=== PATIENT | female | born 1985 | race Caucasian/White ===

== ENCOUNTER 2018-06-20 10:04 | Emergency (ER) | payer SELFPAY ==
[2018-06-20 10:24] VITALS: BP 162/102; PULSE 99; RESP 20; TEMP 36.6; O2SAT 99
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
[2018-06-20 10:42] LABS: Add Manual Diff / Slide Review NO; Basophils Percent Auto 0.7 % (0-2); Eosinophils Percent Auto 2.3 % (2-4); Hemoglobin 11.5 g/dL (12.0-16.0); Lymphocytes Percent Auto 16.3 % (25-40); Mean Corpuscular Volume 78.7 fL (80-100); Monocytes Percent Auto 9.6 % (3-14); Neutrophils Absolute Auto 6300 /uL (3000-5900); Neutrophils Percent Auto 71.1 % (50-75); Platelet Count 311 X10^3/uL (150-400); Red Blood Cell Count 4.45 X10^6/uL (4.0-5.2); Red Cell Distribution Width 16.8 % (11.6-14.8); White Blood Cell Count 8.9 X10^3/uL (4.5-11.0)
[2018-06-20 10:53] LABS: Acetaminophen < 10 ug/mL (10-30); Alanine Aminotransferase 19 IU/L (9-52); Albumin 4.3 g/dL (3.5-5.0); Albumin Globulin Ratio 1.5 (1.0-2.8); Alkaline Phosphatase 60 U/L (38-126); Aspartate Aminotransferase 20 IU/L (14-36); BUN Creatinine Ratio 14.3 (6-22); Bilirubin Total 0.7 mg/dL (0.2-1.3); Blood Urea Nitrogen 10 mg/dL (7-17); Calcium 9.6 mg/dL (8.4-10.2); Carbon Dioxide 28 mmol/L (22-32); Chloride 105 mmol/L (98-107); Estimated Glomerular Filt Rate > 60.0 mL/min (>60); Ethanol (ETOH) < 10 mg/dL; Globulin 2.8 g/dL (1.7-4.1); Glucose 99 mg/dL (70-100); HEMOLYSIS < 15 (0-50); Lipase 32 U/L (23-300); Potassium 3.7 mmol/L (3.4-5.1); Sodium 140 mmol/L (137-145); Total Protein 7.1 g/dL (6.3-8.2)
[2018-06-20 10:54] LABS: Salicylate < 1.0 mg/dL (<20)
[2018-06-20 11:14] LABS: Pregnancy Test Serum,Qual Negative (Negative)
[2018-06-20 13:30] VITALS: BP 121/79; PULSE 73; RESP 17; O2SAT 100
--- NOTE | 2018-06-20 14:08 | PC.NURSE ---
Water given to pt
--- NOTE | 2018-06-20 14:10 | PC.NURSE ---
Pt stood up, starting banging on door asking to be let out, for water and to go to detention. RN gave patient water.
[2018-06-20 14:34] LABS: Urine Amphetamines Positive (Negative); Urine Barbiturates Negative (Negative); Urine Benzodiazepines Negative (Negative); Urine Cocaine Negative (Negative); Urine MDMA Negative (Negative); Urine Methadone Negative (Negative); Urine Methamphetamines Positive (Negative); Urine Morphine/Opi cutoff 2000 Negative (Negative); Urine Oxycodone Negative (Negative); Urine Phencyclidine Negative (Negative); Urine Tetrahydrocannabinol Positive (Negative); Urine Tricyclic Antidepressant Negative (Negative)
[2018-06-20 16:10] VITALS: BP 124/82; PULSE 82; RESP 16; TEMP 36.6; O2SAT 100
--- NOTE | 2018-06-20 16:12 | PC.NURSE ---
Patient complaining of more stomach pain, Dr. Mckeon informed and aware.
--- NOTE | 2018-06-20 16:21 | PC.NURSE ---
[facility] called at 1510 by LESLEE Oakley.
--- NOTE | 2018-06-20 16:29 | PC.NURSE ---
1600-Gave pt a juice box and some cheese and crackers. PT states that she wants to leave due to fear of being fired. States that if she gets fired from her work that she is sueing us because we are holding her against her will. PT asked for a phone to be able to call her work. Discussed with digital analytics manager:Armida. PT will not be given a phone at this time due to pt being unreliable to not hurt staff or herself. PT is resting on the ED stretcher. Will continue to monitor pt
--- NOTE | 2018-06-20 17:15 | PC.NURSE ---
1650-PT still insists on calling her work. RN (Oly) said we can get her phone for her (which is currently locked up) so she can call her work.RN(Cheyenne) went to open the Patient Belongings door and the lock malfunctioned. maintenance parts technician is in search of a new battery. PT wants to leave to be able to get her 13 yr old. pt is in the room crying
--- NOTE | 2018-06-20 17:22 | PC.NURSE ---
1720-groundwater monitoring technician was able to get the belongings door opened. Handed pt her cellphone. PT snatched it out of my hand. Pt continues to cry. Pt is currently on her phone in the corner of the room. PT is on the phone with someone. Can't tell who at this time.
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
--- NOTE | 2018-06-20 17:38 | PC.NURSE ---
0205-RN (yenni), CNAs:Rene and Adin went into the room to take away her phone. Pt said i need to call my work! Pt was not able to call her work as she decided to use the phone to call her work instead. I assisted to help take pt's phone away.Pt was yelling at Yenni saying don't fuckin touch me you bitch!! Stay away from me you whore!! Rene was able to get pt's phone from her. Pt hid behind the ED stretcher and turned on the oxygen tank. Yenni wanted the stretcher taken away and a mattress given to pt instead. Pt is currently on mattress with a blanket over her and her head on a pillow. Pt was crying out you are treating me worse then a prisoner. I haven't even had a real meal! Pt is crying at the moment. Door to pt's room is open. I will continue to stand by and watch pt.
--- NOTE | 2018-06-20 17:48 | PC.NURSE ---
1720 - pt was yelling while sitting in the corner of the room on her cell phone. She had tears streaming down her face, was hitting the wall and cursing. I entered room and told patient she was to be calling her work as she asked. She screamed and yelled, refused to give up the phone. I told her she could have 5 mins and then I needed the phone back, she agreed. After 5 mins I entered the room and asked for the phone, she declined, hid the phone behind her back. I repeated the request and she continued the refusal. I explained that she needed to give us the phone as who ever she was speaking to was not helping her situation, she continued to refused. I physically held her arms while a AUTO PARKER removed the phone from her hand. She yelled and called me a cunt continued to refuse to give up the phone. After the phone was removed from the room staff exited the room. Shortly after a hissing sound came form the room, we entered the room to find she had turned on the oxygen bottle located under the bed. We removed the bed and gave the patient a large mattress on the ground for her safety. A sitter is outside her room with continuos monitoring as she appears to be escalating.
--- NOTE | 2018-06-20 18:53 | PC.NURSE ---
1850-Pt is resting on a mattress in the room. Pt will look up from underneath her blanket every now and then. Pt is quiet at the moment, not crying or yelling out. [facility]
--- NOTE | 2018-06-20 19:40 | PC.NURSE ---
Maco5-Oren in room with pt. Pt is very irritated at the moment. Will continue to monitor
--- NOTE | 2018-06-20 19:44 | PC.NURSE ---
1935-Pt mentioned to Oren that she was hungry. Gave pt a half a sandwich, water, juice,saltine crackers and alfonso crackers. Pt is still hostile with everyone that talks to her. States she wants to get home to her daughter and wants to know when she'll be able to go. Pt isn't teary at the moment. Pt has only eaten her sandwich and drank some of her water and her juice. States she has been asking for food all day but hasn't said anything to me. Will cont to monitor.
--- NOTE | 2018-06-20 21:18 | PC.NURSE ---
Bess walked into the room and mentioned to the pt that she was going to be transferred to a facility down in [place]. Pt responded with why the fuck so far away.? Oren mentioned it was the only place that would take her and then handed her some papers.
[2018-06-20 21:29] VITALS: BP 139/94; PULSE 90; RESP 20; TEMP 36.8; O2SAT 100
--- NOTE | 2018-06-20 21:30 | PC.NURSE ---
2130-[facility] is here to bring PT down to [place]. Currently waiting for the [facility] to finish the packet for transport. Took one last set of VS before the pt left. Reported VS to RN. Gave to [facility] to document in the computer as I do not have access to document on the vital signs.
--- NOTE | 2018-06-20 21:42 | PC.NURSE ---
2139-casting and locker room servicer were handed the pt's transfer papers and strapped PT onto their stretcher.
--- NOTE | 2018-06-20 21:44 | PC.NURSE ---
2145-PT out the door and on her way to [facility]
== END 2018-06-20 21:45 ==
PROVIDERS: Emergency Provider Emergency Medicine; Family Provider Family Medicine; PCP Family Medicine
DX: R41.82 Altered mental status, unspecified (principal)
CPT/HCPCS: 36415; 80053; 80305; 80320; 80329; 83690; 84703; 85025; 99285; G0480

== ENCOUNTER 2019-05-21 17:25 | Emergency (ER) | payer SELFPAY ==
[2019-05-21 17:30] VITALS: BP 147/105; PULSE 109; RESP 18; TEMP 37.3; O2SAT 100; BMI 18.8
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
[2019-05-21] MEDS: KETOROLAC 60 MG/2 ML VIAL IM (19:25)
[2019-05-21 19:30] VITALS: BP 125/74; PULSE 77; O2SAT 100
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
[2019-05-21 20:57] VITALS: BP 133/85; PULSE 77; RESP 18
== END 2019-05-21 20:58 | disposition home or self-care (01) ==
PROVIDERS: Emergency Provider Nurse Practitioner Family
DX: S50.02XA Contusion of left elbow, initial encounter (principal); S20.212A Contusion of left front wall of thorax, initial encounter; Y08.02XA Assault by strike by baseball bat, initial encounter
CPT/HCPCS: 71101; 73080; 96372; 99282; 99283; J1885

== ENCOUNTER 2021-01-30 13:43 | Inpatient (IN) | payer SELFPAY ==
[2021-01-30] VITALS (24 sets, daily range): BP systolic 133–191; BP diastolic 84–111; PULSE 51–79; RESP 16–18; TEMP 35.9–36.6; O2SAT 97–100; BMI 21.9; BMI 23.3
[2021-01-30 14:08] LABS: Prothrombin Time 11.2 SECONDS (10.1-12.7)
[2021-01-30 14:09] LABS: Add Manual Diff / Slide Review NO; Basophils Absolute Auto 200 /uL (0-100); Basophils Percent Auto 1.6 % (0-2); Eosinophils Absolute Auto 100 /uL (0-450); Eosinophils Percent Auto 0.9 % (2-4); Hematocrit 34.3 % (36-46); Hemoglobin 10.8 g/dL (12.0-16.0); Lymphocytes Absolute Auto 1800 /uL (1100-4500); Lymphocytes Percent Auto 16.9 % (25-40); Mean Corpuscular HGB Conc 31.4 % (30-36); Mean Corpuscular Hemoglobin 22.6 PG (26-34); Monocytes Absolute Auto 600 /uL (0-900); Monocytes Percent Auto 5.4 % (3-14); Neutrophils Absolute Auto 7800 /uL (1500-7000); Neutrophils Percent Auto 75.2 % (50-75); Platelet Count 405 X10^3/uL (150-400); Red Blood Cell Count 4.77 X10^6/uL (4.0-5.2); Red Cell Distribution Width 20.9 % (11.6-14.8); White Blood Cell Count 10.4 X10^3/uL (4.5-11.0)
[2021-01-30 14:11] LABS: PTT Partial Thromboplastin Tim 28 SECONDS (26.4-36.2)
[2021-01-30 14:18] LABS: Alanine Aminotransferase 12 IU/L (<35); Albumin 4.4 g/dL (3.5-5.0); Albumin Globulin Ratio 1.3 (1.0-2.8); Alkaline Phosphatase 73 U/L (38-126); Aspartate Aminotransferase 24 IU/L (14-36); BUN Creatinine Ratio 31.9 (6-22); Bilirubin Total 0.2 mg/dL (0.2-1.3); Blood Urea Nitrogen 15 mg/dL (7-17); Calcium 9.5 mg/dL (8.4-10.2); Carbon Dioxide 28 mmol/L (22-32); Chloride 103 mmol/L (98-107); Estimated Glomerular Filt Rate > 60.0 mL/min (>60); Globulin 3.3 g/dL (1.7-4.1); Glucose 122 mg/dL (70-100); HEMOLYSIS 25 (0-50); Lipase 72 U/L (23-300); Potassium 3.6 mmol/L (3.4-5.1); Sodium 136 mmol/L (137-145); Total Protein 7.7 g/dL (6.3-8.2)
[2021-01-30] MEDS: MORPHINE 2 MG/ML INJ IV ×3 (14:31→22:22)
[2021-01-30] MEDS: ONDANSETRON 4 MG/2 ML INJ IV ×2 (14:31→17:58)
[2021-01-30] MEDS: SODIUM CHLORIDE 0.9% 1,000 ML 1000 ML IV ×2 (14:31→15:14)
[2021-01-30 15:00] LABS: Lactate (Lactic Acid) 1.7 mmol/L (0.7-2.1)
[2021-01-30 15:05] LABS: Poikilocytosis 1+
[2021-01-30 15:06] LABS: Anisocytosis 3+
[2021-01-30 15:10] LABS: Pregnancy Test Serum,Qual Negative (Negative)
--- NOTE | 2021-01-30 15:23 | DI.CT.S_ITS ---
PROCEDURE: CT ABDOMEN PELVIS W CON INDICATIONS: abd pain, vomiting, no bms x days TECHNIQUE: After the administration of intravenous contrast, 5 mm thick sections acquired from the diaphragm to the symphysis. 5 mm coronal and sagittal reformats were acquired. For radiation dose reduction, the following was used: automated exposure control, adjustment of mA and/or kV according to patient size. COMPARISON: None. FINDINGS: Image quality: Excellent. ABDOMEN: Lung bases: Lung bases are clear. Heart size is normal. Solid organs: Liver is normal in size and enhancement. Gallbladder is unremarkable. Biliary system is non dilated. Pancreas enhances normally. Spleen is normal in size and enhancement. No adrenal nodules. Kidneys demonstrate normal size and enhancement, without hydronephrosis. Peritoneum and bowel: Marked diffuse edema of the gastric antrum pylorus. Question gastric antral ulcer. Bowel loops demonstrate normal wall thickness and caliber. No free fluid or air. Nodes and vessels: No retroperitoneal or mesenteric adenopathy by size criteria. Aorta and inferior vena cava are normal in size. Miscellaneous: No ventral hernias. PELVIS: Genitourinary: Bladder wall thickness is normal. Miscellaneous: No inguinal hernias or adenopathy. Bones: No suspicious bony lesions. No vertebral body compression fractures. Bilateral L5 pars defects with mild grade 1 anterolisthesis of L5 on S1. There is severe right L5-S1 foraminal narrowing and moderate left L5-S1 foraminal narrowing. The right L5 nerve root is impinged in the right foramen. IMPRESSION: 1. Marked edema of the gastric antrum and pylorus. Findings are consistent with impressive gastritis. Question anterior gastric antral ulcer. 2. Incidental note made of the presence of bilateral L5 pars defects, mild anterolisthesis of L5 on S1, and foraminal impingement on the right L5 nerve root. Dictated by: Aly Wynne M.D. on 01/30/2021 at 15:11 Approved by: Aly Wynne M.D. on 01/30/2021 at 15:15
[2021-01-30 16:30] LABS: Amorphous Sediment Urine 3+; Bacteria Urine Moderate (10-30); RBC Urine 1-5/HPF (0-5/HPF); Squamous Epithelial Cell Urine 1-5 /HPF (0-5/HPF); WBC Urine 10-30/HPF (0-5/HPF)
[2021-01-30 16:31] LABS: Culture Indicated Urine Specimen Cultured
[2021-01-30 16:37] LABS: UR Morphine/Opiate cutoff 300 Positive (Negative); Ur Creatinine Normal (Normal); Ur Specific Gravity Normal (Normal); Urine Amphetamines Positive (Negative); Urine Barbiturates Negative (Negative); Urine Benzodiazepines Negative (Negative); Urine Cocaine Negative (Negative); Urine MDMA Negative (Negative); Urine Methadone Negative (Negative); Urine Methamphetamines Positive (Negative); Urine Oxycodone Negative (Negative); Urine Phencyclidine Negative (Negative); Urine Tetrahydrocannabinol Positive (Negative); Urine Tricyclic Antidepressant Negative (Negative); Urine pH Normal (Normal)
--- NOTE | 2021-01-30 17:54 | ED.ABDPAIN ---
HPI - Abdominal Pain <KYLE Burciaga-BC - Last Filed: 01/30/21 19:33> General Chief Complaint: Abdominal Pain Stated Complaint: ABDOMINAL PAIN, STARTED ABOUT 2 DAYS AGO Time Seen by Provider: 01/30/21 13:58 Source: patient and family Mode of arrival: Ambulatory Limitations: no limitations History of Present Illness HPI narrative: The patient is a 35-year-old female current everyday smoker with history of marijuana methamphetamine use who presents with a chief complaint of abdominal pain ongoing for the past 2 days. She complains of nausea that progressed to vomiting today. She took Pepto to feel better, which she states helped for a slight moment but not long. Last bowel movement 2 days ago. She states that she feels very bloated. Denies any dysuria urgency or frequency. Denies any abdominal surgical history other than tubal ligation. Denies any vaginal discharge. She states that the pain is Around her umbilicus and radiates up. Denies any back or flank pain. Related Data Previous Rx's Medication Instructions Recorded amoxicillin 1,000 mg PO BID #56 tab 01/31/21 clarithromycin 500 mg PO BID #28 tab 01/31/21 metronidazole 500 mg PO BID #28 tab 01/31/21 pantoprazole 40 mg PO BID #60 tab 01/31/21 Allergies Allergy/AdvReac Type Severity Reaction Status Date / Time hydrocodone [HYDROCODONE] Allergy Mild ITCHING Verified 01/30/21 19:32 Review of Systems <KYLE Burciaga-BC - Last Filed: 01/30/21 19:33> Review of Systems Narrative: GENERAL: Denies chills, fatigue, malaise, fever, sweats. HEENT: Denies sinus pain, ear pain, sore throat, difficulty swallowing, dizziness. RESPIRATORY: Denies dyspnea, cough, wheezing, hemoptysis, sputum. CARDIOVASCULAR: Denies chest pain, palpitations, orthopnea, edema, GASTROINTESTINAL: See HPI : Denies dysuria, frequency, incontinence, hematuria, urinary retention. MUSCULOSKELETAL: denies weakness, joint pain, or bony pain SKIN: Denies rash, skin lesions, or other NEUROLOGIC: Denies weakness, headache, numbness, change in speech, confusion, seizures, incoordination. PSYCHIATRIC: No concerning psychosocial issues. 12 point review of systems is negative except for those stated above Patient History <HARMAN Burciaga - Last Filed: 01/30/21 19:33> Medical History (Updated 01/30/21 @ 21:19 by SHADY Vizcaino) Migraine headache Polysubstance abuse Psoriatic arthritis Surgical History (Updated 01/30/21 @ 21:19 by SHADY Vizcaino) History of tubal ligation Family History (Updated 01/30/21 @ 21:21 by SHADY Vizcaino) Father Hypertension Mother Alcoholism Grandmother Diabetes mellitus Sister Lupus Family/Other Multiple sclerosis Social History household members: significant other Smoking Status: Current every day smoker alcohol intake: former Smoking Status: Current every day smoker Substance Use Type: marijuana and methamphetamine Exam <HARMAN Burciaga - Last Filed: 01/30/21 19:33> Narrative Exam Narrative: GENERAL: This is a well-nourished, well-developed patient, appears uncomfortable. HEAD: Atraumatic. Normocephalic. No temporal or scalp tenderness. EYES: Pupils equal round and reactive. Extraocular motions intact. No scleral icterus. No injection or drainage. ENT: Nose without bleeding, purulent drainage or septal hematoma. Wearing mask. Airway patent. NECK: Trachea midline. No JVD or lymphadenopathy. Supple, nontender, no meningeal signs. CARDIOVASCULAR: Regular rate and rhythm RESPIRATORY: Clear to auscultation. Breath sounds equal bilaterally. No wheezes, rales, or rhonchi. No cough. No increased respiratory effort. No accessory muscle use. GASTROINTESTINAL: Abdomen soft, tenderness of periumbilical with slight guarding, nondistended. No hepato-splenomegaly, or palpable masses. Active bowel sounds all 4 quadrants EXTREMITIES: No clubbing, cyanosis, or edema. No joint tenderness, effusion, or edema noted. BACK: Nontender without deformity or crepitance. No flank tenderness. NEURO: AOx3. SKIN: No rash or erythema on visible skin. 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 Initial Vital Signs Initial Vital Signs: Vital Signs Temperature 97.6 F 01/30/21 13:49 Pulse Rate 74 01/30/21 13:49 Respiratory Rate 16 01/30/21 13:49 Pulse Oximetry 97 01/30/21 13:49 <Mae Geurrero DO - Last Filed: 01/31/21 18:51> Initial Vital Signs Initial Vital Signs: Vital Signs Temperature 97.6 F 01/30/21 13:49 Pulse Rate 74 01/30/21 13:49 Respiratory Rate 16 01/30/21 13:49 Pulse Oximetry 97 01/30/21 13:49 Scores <VINNIE BurciagaBC - Last Filed: 01/30/21 19:33> GCS Tania coma scale eye opening: Spontaneous Tania coma scale verbal response: Orientated Tania coma scale motor response: Obey commands [place] coma scale total score: 15 Course <HARMAN Burciaga - Last Filed: 01/30/21 19:33> Orders Ordered: Discontinued Medications Amoxicillin (Amoxicillin 250 Mg/5 Ml Bottle) 1,000 mg PO Q12H [facility] Last Admin: 01/31/21 01:45 Dose: Not Given Documented by: PAULETTE Amoxicillin (Amoxicillin 250 Mg/5 Ml Bottle) 1,000 mg TUBE BID [facility] Amoxicillin (Amoxicillin 250 Mg/5 Ml Prepack) 4 bottle MISC BID [facility] Stop: 02/01/21 21:01 Amoxicillin (Amoxicillin 250 Mg/5 Ml Prepack) 1 bottle MISC BID [facility] Stop: 02/01/21 09:01 Last Admin: 01/31/21 00:24 Dose: 1 bottle Documented by: PAULETTE Bisacodyl (Bisacodyl 10 Mg Supp) 10 mg [place] DAILY PRN PRN Reason: Constipation Bismuth Subsalicylate (Bismuth Subsalicylate 525 Mg/30 Ml Susp) 30 ml PO QID [facility] Last Admin: 01/31/21 00:36 Dose: 30 ml Documented by: PAULETTE Clarithromycin (Clarithromycin 500 Mg Tablet) 500 mg PO BID [facility] Last Admin: 01/31/21 01:34 Dose: Not Given Documented by: EFREN Enoxaparin Sodium (Enoxaparin 40 Mg/0.4 Ml Syringe) 40 mg SUBCUT DAILY [facility] Fentanyl (Fentanyl 100 Mcg/2 Ml Inj) 0 mcg IV Q5MIN PRN PRN Reason: Pain, Severe (7-10) Sodium Chloride (Normal Saline 0.9%) 1,000 mls @ 1,000 mls/hr IV BOLUS ONE Stop: 01/30/21 15:29 Last Infusion: 01/30/21 15:12 Dose: 0 mls/hr Documented by: Admin: 01/30/21 14:31 Dose: 1,000 mls/hr Documented by: JAMAL Sodium Chloride (Normal Saline 0.9%) 1,000 mls @ 1,000 mls/hr IV BOLUS ONE Stop: 01/30/21 16:11 Last Infusion: 01/30/21 16:59 Dose: 0 mls/hr Documented by: Admin: 01/30/21 15:14 Dose: 1,000 mls/hr Documented by: JAMAL Sodium Chloride (Normal Saline 0.9%) 1,000 mls @ 250 mls/hr IV CONT HO Last Infusion: 01/30/21 20:18 Dose: 0 mls/hr Documented by: Infusion: 01/30/21 20:07 Dose: 0 mls/hr Documented by: Infusion: 01/30/21 19:35 Dose: 250 mls/hr Documented by: Admin: 01/30/21 17:57 Dose: 250 mls/hr Documented by: JIMMY Lactated Ringer's (Lactated Ringers) 1,000 mls @ 125 mls/hr IV CONT HO Last Admin: 01/31/21 06:45 Dose: 125 mls/hr Documented by: Infusion: 01/31/21 05:31 Dose: 125 mls/hr Documented by: Admin: 01/30/21 20:31 Dose: 125 mls/hr Documented by: BELINDA Levofloxacin (Levaquin) 500 mg in 100 mls @ 100 mls/hr IV Q24H HO Last Infusion: 01/30/21 22:52 Dose: 100 mls/hr Documented by: Admin: 01/30/21 21:59 Dose: 100 mls/hr Documented by: BELINDA Lactated Ringer's (Lactated Ringers) 1,000 mls @ 42 mls/hr IV CONT HO Last Infusion: 01/31/21 10:20 Dose: 0 mls/hr Documented by: Admin: 01/31/21 09:10 Dose: 42 mls/hr Documented by: SHAN Lactated Ringer's (Lactated Ringers) 1,000 mls @ 120 mls/hr IV CONT HO Last Admin: 01/31/21 10:49 Dose: 120 mls/hr Documented by: BELKIS Lidocaine HCl (Lidocaine 2% (Urojet) 5 Ml Gel) 5 ml TOP NOW ONE Stop: 01/30/21 20:51 Last Admin: 01/30/21 22:25 Dose: 5 ml Documented by: BELINDA Morphine Sulfate (Morphine 2 Mg/Ml Inj) 2 mg IV NOW ONE Stop: 01/30/21 14:27 Last Admin: 01/30/21 14:31 Dose: 2 mg Documented by: JAMAL Morphine Sulfate (Morphine 2 Mg/Ml Inj) 2 mg IV NOW ONE Stop: 01/30/21 15:13 Last Admin: 01/30/21 15:14 Dose: 2 mg Documented by: JAMAL Morphine Sulfate (Morphine 2 Mg/Ml Inj) 2 mg IV Q4HR PRN PRN Reason: Pain, Moderate (4-6) Last Admin: 01/30/21 22:22 Dose: 2 mg Documented by: BELINDA Morphine Sulfate (Morphine 4 Mg/Ml Inj) 4 mg IV Q4HR PRN PRN Reason: Pain, Severe (7-10) Last Admin: 01/31/21 08:44 Dose: 4 mg Documented by: BELKIS Naloxone HCl (Naloxone 0.4 Mg/Ml Vial) 0.2 mg IV Q2MIN PRN PRN Reason: Opiate Reversal Ondansetron HCl (Ondansetron 4 Mg/2 Ml Inj) 4 mg IV NOW ONE Stop: 01/30/21 14:27 Last Admin: 01/30/21 14:31 Dose: 4 mg Documented by: JAMAL Ondansetron HCl (Ondansetron 4 Mg/2 Ml Inj) 4 mg IV NOW ONE Stop: 01/30/21 17:46 Last Admin: 01/30/21 17:58 Dose: 4 mg Documented by: JIMMY Ondansetron HCl (Ondansetron 4 Mg/2 Ml Inj) 4 mg IV Q6HR PRN PRN Reason: Nausea And Vomiting Ondansetron HCl (Ondansetron 4 Mg/2 Ml Inj) 4 mg IV NOW PRN PRN Reason: Nausea And Vomiting Pantoprazole Sodium (Pantoprazole 40 Mg Vial) 40 mg IV NOW ONE Stop: 01/30/21 17:06 Last Admin: 01/30/21 17:58 Dose: 40 mg Documented by: JIMMY Pantoprazole Sodium (Pantoprazole 40 Mg Vial) 40 mg IV BID [facility] Last Admin: 01/31/21 08:44 Dose: 40 mg Documented by: Admin: 01/30/21 20:31 Dose: 40 mg Documented by: BELINDA Promethazine HCl (Promethazine 12.5 Mg Supp) 12.5 mg [place] Q6HR PRN PRN Reason: Nausea And Vomiting Sodium Chloride (Sodium Chloride 0.9% Flush) 10 ml IV PRN PRN PRN Reason: Flush Sodium Chloride (Sodium Chloride 0.9% Flush) 10 ml IV BID [facility] Last Admin: 01/31/21 08:49 Dose: Not Given Documented by: BELKIS Vital Signs Vital signs: Vital Signs - 8 hr 01/30/21 13:49 01/30/21 13:58 01/30/21 14:00 Temperature 97.6 F Pulse Rate 74 61 61 Respiratory Rate 16 Blood Pressure 171/111 H Pulse Oximetry 97 100 100 01/30/21 14:30 01/30/21 15:00 01/30/21 15:30 Temperature Pulse Rate 57 L 60 54 L Respiratory Rate Blood Pressure 181/109 H 190/105 H 191/104 H Pulse Oximetry 100 100 100 01/30/21 15:40 01/30/21 15:55 01/30/21 16:00 Temperature Pulse Rate 62 62 52 L Respiratory Rate Blood Pressure 175/94 H Pulse Oximetry 100 98 100 01/30/21 16:01 01/30/21 16:30 01/30/21 16:31 Temperature Pulse Rate 53 L 51 L 53 L Respiratory Rate Blood Pressure 185/111 H 172/96 H Pulse Oximetry 100 100 100 01/30/21 17:00 01/30/21 17:01 01/30/21 17:30 Temperature Pulse Rate 54 L 56 L 57 L Respiratory Rate Blood Pressure 170/99 H 165/98 H Pulse Oximetry 100 100 100 01/30/21 18:00 01/30/21 18:01 01/30/21 18:30 Temperature Pulse Rate 59 L 59 L 70 Respiratory Rate 16 Blood Pressure 164/98 H 167/109 H Pulse Oximetry 100 100 100 01/30/21 19:00 Temperature Pulse Rate 53 L Respiratory Rate 18 Blood Pressure 166/90 H Pulse Oximetry 100 <Mae Guerrero, DO - Last Filed: 01/31/21 18:51> Orders Ordered: Discontinued Medications Amoxicillin (Amoxicillin 250 Mg/5 Ml Bottle) 1,000 mg PO Q12H [facility] Last Admin: 01/31/21 01:45 Dose: Not Given Documented by: PAULETTE Amoxicillin (Amoxicillin 250 Mg/5 Ml Bottle) 1,000 mg TUBE BID [facility] Amoxicillin (Amoxicillin 250 Mg/5 Ml Prepack) 4 bottle MISC BID [facility] Stop: 02/01/21 21:01 Amoxicillin (Amoxicillin 250 Mg/5 Ml Prepack) 1 bottle MISC BID [facility] Stop: 02/01/21 09:01 Last Admin: 01/31/21 00:24 Dose: 1 bottle Documented by: PAULETTE Bisacodyl (Bisacodyl 10 Mg Supp) 10 mg [place] DAILY PRN PRN Reason: Constipation Bismuth Subsalicylate (Bismuth Subsalicylate 525 Mg/30 Ml Susp) 30 ml PO QID [facility] Last Admin: 01/31/21 00:36 Dose: 30 ml Documented by: PAULETTE Clarithromycin (Clarithromycin 500 Mg Tablet) 500 mg PO BID [facility] Last Admin: 01/31/21 01:34 Dose: Not Given Documented by: EFREN Enoxaparin Sodium (Enoxaparin 40 Mg/0.4 Ml Syringe) 40 mg SUBCUT DAILY [facility] Fentanyl (Fentanyl 100 Mcg/2 Ml Inj) 0 mcg IV Q5MIN PRN PRN Reason: Pain, Severe (7-10) Sodium Chloride (Normal Saline 0.9%) 1,000 mls @ 1,000 mls/hr IV BOLUS ONE Stop: 01/30/21 15:29 Last Infusion: 01/30/21 15:12 Dose: 0 mls/hr Documented by: Admin: 01/30/21 14:31 Dose: 1,000 mls/hr Documented by: JAMAL Sodium Chloride (Normal Saline 0.9%) 1,000 mls @ 1,000 mls/hr IV BOLUS ONE Stop: 01/30/21 16:11 Last Infusion: 01/30/21 16:59 Dose: 0 mls/hr Documented by: Admin: 01/30/21 15:14 Dose: 1,000 mls/hr Documented by: JAMAL Sodium Chloride (Normal Saline 0.9%) 1,000 mls @ 250 mls/hr IV CONT HO Last Infusion: 01/30/21 20:18 Dose: 0 mls/hr Documented by: Infusion: 01/30/21 20:07 Dose: 0 mls/hr Documented by: Infusion: 01/30/21 19:35 Dose: 250 mls/hr Documented by: Admin: 01/30/21 17:57 Dose: 250 mls/hr Documented by: JIMMY Lactated Ringer's (Lactated Ringers) 1,000 mls @ 125 mls/hr IV CONT HO Last Admin: 01/31/21 06:45 Dose: 125 mls/hr Documented by: Infusion: 01/31/21 05:31 Dose: 125 mls/hr Documented by: Admin: 01/30/21 20:31 Dose: 125 mls/hr Documented by: BELINDA Levofloxacin (Levaquin) 500 mg in 100 mls @ 100 mls/hr IV Q24H HO Last Infusion: 01/30/21 22:52 Dose: 100 mls/hr Documented by: Admin: 01/30/21 21:59 Dose: 100 mls/hr Documented by: BELINDA Lactated Ringer's (Lactated Ringers) 1,000 mls @ 42 mls/hr IV CONT HO Last Infusion: 01/31/21 10:20 Dose: 0 mls/hr Documented by: Admin: 01/31/21 09:10 Dose: 42 mls/hr Documented by: SHAN Lactated Ringer's (Lactated Ringers) 1,000 mls @ 120 mls/hr IV CONT HO Last Admin: 01/31/21 10:49 Dose: 120 mls/hr Documented by: BELKIS Lidocaine HCl (Lidocaine 2% (Urojet) 5 Ml Gel) 5 ml TOP NOW ONE Stop: 01/30/21 20:51 Last Admin: 01/30/21 22:25 Dose: 5 ml Documented by: BELINDA Morphine Sulfate (Morphine 2 Mg/Ml Inj) 2 mg IV NOW ONE Stop: 01/30/21 14:27 Last Admin: 01/30/21 14:31 Dose: 2 mg Documented by: JAMAL Morphine Sulfate (Morphine 2 Mg/Ml Inj) 2 mg IV NOW ONE Stop: 01/30/21 15:13 Last Admin: 01/30/21 15:14 Dose: 2 mg Documented by: JAMAL Morphine Sulfate (Morphine 2 Mg/Ml Inj) 2 mg IV Q4HR PRN PRN Reason: Pain, Moderate (4-6) Last Admin: 01/30/21 22:22 Dose: 2 mg Documented by: BELINDA Morphine Sulfate (Morphine 4 Mg/Ml Inj) 4 mg IV Q4HR PRN PRN Reason: Pain, Severe (7-10) Last Admin: 01/31/21 08:44 Dose: 4 mg Documented by: BELKIS Naloxone HCl (Naloxone 0.4 Mg/Ml Vial) 0.2 mg IV Q2MIN PRN PRN Reason: Opiate Reversal Ondansetron HCl (Ondansetron 4 Mg/2 Ml Inj) 4 mg IV NOW ONE Stop: 01/30/21 14:27 Last Admin: 01/30/21 14:31 Dose: 4 mg Documented by: JAMAL Ondansetron HCl (Ondansetron 4 Mg/2 Ml Inj) 4 mg IV NOW ONE Stop: 01/30/21 17:46 Last Admin: 01/30/21 17:58 Dose: 4 mg Documented by: JIMMY Ondansetron HCl (Ondansetron 4 Mg/2 Ml Inj) 4 mg IV Q6HR PRN PRN Reason: Nausea And Vomiting Ondansetron HCl (Ondansetron 4 Mg/2 Ml Inj) 4 mg IV NOW PRN PRN Reason: Nausea And Vomiting Pantoprazole Sodium (Pantoprazole 40 Mg Vial) 40 mg IV NOW ONE Stop: 01/30/21 17:06 Last Admin: 01/30/21 17:58 Dose: 40 mg Documented by: JIMMY Pantoprazole Sodium (Pantoprazole 40 Mg Vial) 40 mg IV BID HO Last Admin: 01/31/21 08:44 Dose: 40 mg Documented by: Admin: 01/30/21 20:31 Dose: 40 mg Documented by: BELINDA Promethazine HCl (Promethazine 12.5 Mg Supp) 12.5 mg [place] Q6HR PRN PRN Reason: Nausea And Vomiting Sodium Chloride (Sodium Chloride 0.9% Flush) 10 ml IV PRN PRN PRN Reason: Flush Sodium Chloride (Sodium Chloride 0.9% Flush) 10 ml IV BID HO Last Admin: 01/31/21 08:49 Dose: Not Given Documented by: BELKIS Vital Signs Vital signs: Vital Signs - 8 hr 01/30/21 13:49 01/30/21 13:58 01/30/21 14:00 Temperature 97.6 F Pulse Rate 74 61 61 Respiratory Rate 16 Blood Pressure 171/111 H Pulse Oximetry 97 100 100 01/30/21 14:30 01/30/21 15:00 01/30/21 15:30 Temperature Pulse Rate 57 L 60 54 L Respiratory Rate Blood Pressure 181/109 H 190/105 H 191/104 H Pulse Oximetry 100 100 100 01/30/21 15:40 01/30/21 15:55 01/30/21 16:00 Temperature Pulse Rate 62 62 52 L Respiratory Rate Blood Pressure 175/94 H Pulse Oximetry 100 98 100 01/30/21 16:01 01/30/21 16:30 01/30/21 16:31 Temperature Pulse Rate 53 L 51 L 53 L Respiratory Rate Blood Pressure 185/111 H 172/96 H Pulse Oximetry 100 100 100 01/30/21 17:00 01/30/21 17:01 01/30/21 17:30 Temperature Pulse Rate 54 L 56 L 57 L Respiratory Rate Blood Pressure 170/99 H 165/98 H Pulse Oximetry 100 100 100 01/30/21 18:00 01/30/21 18:01 01/30/21 18:30 Temperature Pulse Rate 59 L 59 L 70 Respiratory Rate 16 Blood Pressure 164/98 H 167/109 H Pulse Oximetry 100 100 100 01/30/21 19:00 Temperature Pulse Rate 53 L Respiratory Rate 18 Blood Pressure 166/90 H Pulse Oximetry 100 MDM - Abdominal Pain <KYLE Burciaga- - Last Filed: 01/30/21 19:33> Lab Data Attestation: I reviewed the patient's lab results. Result diagrams: 01/31/21 06:05 01/31/21 06:05 Labs: Lab Results 01/30/21 01/30/21 01/30/21 Range/Units 13:43 13:43 13:56 WBC 10.4 (4.5-11.0) X10^3/uL RBC 4.77 (4.0-5.2) X10^6/uL Hgb 10.8 L (12.0-16.0) g/dL Hct 34.3 L (36-46) % MCV 72.0 L (80-100) fL MCH 22.6 L (26-34) PG MCHC 31.4 (30-36) % RDW 20.9 H (11.6-14.8) % Plt Count 405 H (150-400) X10^3/uL Neut % (Auto) 75.2 H (50-75) % Lymph % (Auto) 16.9 L (25-40) % Chaves % (Auto) 5.4 (3-14) % Eos % (Auto) 0.9 L (2-4) % Baso % (Auto) 1.6 (0-2) % Neut # (Auto) 7800 H (3123-8850) /uL Lymph # (Auto) 1800 (5727-0477) /uL Chaves # (Auto) 600 (0-900) /uL Eos # (Auto) 100 (0-450) /uL Baso # (Auto) 200 H (0-100) /uL RBC Morphology Not Reportable Poikilocytosis 1+ H Anisocytosis 3+ H Microcytosis Ovalocytes PT (10.1-12.7) SECONDS INR (0.9-1.3) APTT (26.4-36.2) SECONDS Sodium (137-145) mmol/L Potassium (3.4-5.1) mmol/L Chloride (98-107) mmol/L Carbon Dioxide (22-32) mmol/L BUN (7-17) mg/dL Creatinine (0.52-1.04) mg/dL Estimated GFR (>60) mL/min BUN/Creatinine Ratio (6-22) Glucose (70-100) mg/dL Lactate 1.7 (0.7-2.1) mmol/L Calcium (8.4-10.2) mg/dL Magnesium (1.6-2.3) mg/dL Total Bilirubin (0.2-1.3) mg/dL AST (14-36) IU/L ALT (<35) IU/L Alkaline Phosphatase (38-126) U/L Total Protein (6.3-8.2) g/dL Albumin (3.5-5.0) g/dL Globulin (1.7-4.1) g/dL Albumin/Globulin Ratio (1.0-2.8) Lipase (23-300) U/L Serum , Qual Negative (Negative) Urine RBC (0-5/HPF) Urine WBC (0-5/HPF) Ur Squamous Epith Cells (0-5/HPF) Amorphous Sediment Urine Bacteria (None) Ur Culture Indicated? U Opiates 300ng/mL cut (Negative) Ur Oxycodone Screen (Negative) Urine Methadone Screen (Negative) Ur Barbiturates Screen (Negative) U Tricyclic Antidepress (Negative) Ur Phencyclidine Scrn (Negative) Ur Amphetamines Screen (Negative) U Methamphetamines Scrn (Negative) Ur MDMA Scrn (Ecstasy) (Negative) U Benzodiazepines Scrn (Negative) Urine Cocaine Screen (Negative) U Marijuana (THC) Screen (Negative) SARS-CoV-2 (PCR) (Negative) 01/30/21 01/30/21 01/30/21 Range/Units 13:56 13:56 13:56 WBC (4.5-11.0) X10^3/uL RBC (4.0-5.2) X10^6/uL Hgb (12.0-16.0) g/dL Hct (36-46) % MCV (80-100) fL MCH (26-34) PG MCHC (30-36) % RDW (11.6-14.8) % Plt Count (150-400) X10^3/uL Neut % (Auto) (50-75) % Lymph % (Auto) (25-40) % Chaves % (Auto) (3-14) % Eos % (Auto) (2-4) % Baso % (Auto) (0-2) % Neut # (Auto) (6569-6575) /uL Lymph # (Auto) (9509-1880) /uL Chaves # (Auto) (0-900) /uL Eos # (Auto) (0-450) /uL Baso # (Auto) (0-100) /uL RBC Morphology Poikilocytosis Anisocytosis Microcytosis Ovalocytes PT 11.2 (10.1-12.7) SECONDS INR 1.0 (0.9-1.3) APTT 28 (26.4-36.2) SECONDS Sodium 136 L (137-145) mmol/L Potassium 3.6 (3.4-5.1) mmol/L Chloride 103 (98-107) mmol/L Carbon Dioxide 28 (22-32) mmol/L BUN 15 (7-17) mg/dL Creatinine 0.47 L (0.52-1.04) mg/dL Estimated GFR > 60.0 (>60) mL/min BUN/Creatinine Ratio 31.9 H (6-22) Glucose 122 H (70-100) mg/dL Lactate (0.7-2.1) mmol/L Calcium 9.5 (8.4-10.2) mg/dL Magnesium 2.0 (1.6-2.3) mg/dL Total Bilirubin 0.2 (0.2-1.3) mg/dL AST 24 (14-36) IU/L ALT 12 (<35) IU/L Alkaline Phosphatase 73 (38-126) U/L Total Protein 7.7 (6.3-8.2) g/dL Albumin 4.4 (3.5-5.0) g/dL Globulin 3.3 (1.7-4.1) g/dL Albumin/Globulin Ratio 1.3 (1.0-2.8) Lipase 72 (23-300) U/L Serum , Qual (Negative) Urine RBC (0-5/HPF) Urine WBC (0-5/HPF) Ur Squamous Epith Cells (0-5/HPF) Amorphous Sediment Urine Bacteria (None) Ur Culture Indicated? U Opiates 300ng/mL cut (Negative) Ur Oxycodone Screen (Negative) Urine Methadone Screen (Negative) Ur Barbiturates Screen (Negative) U Tricyclic Antidepress (Negative) Ur Phencyclidine Scrn (Negative) Ur Amphetamines Screen (Negative) U Methamphetamines Scrn (Negative) Ur MDMA Scrn (Ecstasy) (Negative) U Benzodiazepines Scrn (Negative) Urine Cocaine Screen (Negative) U Marijuana (THC) Screen (Negative) SARS-CoV-2 (PCR) (Negative) 01/30/21 01/30/21 01/30/21 Range/Units 16:00 16:00 18:00 WBC (4.5-11.0) X10^3/uL RBC (4.0-5.2) X10^6/uL Hgb (12.0-16.0) g/dL Hct (36-46) % MCV (80-100) fL MCH (26-34) PG MCHC (30-36) % RDW (11.6-14.8) % Plt Count (150-400) X10^3/uL Neut % (Auto) (50-75) % Lymph % (Auto) (25-40) % Chaves % (Auto) (3-14) % Eos % (Auto) (2-4) % Baso % (Auto) (0-2) % Neut # (Auto) (8096-7326) /uL Lymph # (Auto) (3786-9924) /uL Chaves # (Auto) (0-900) /uL Eos # (Auto) (0-450) /uL Baso # (Auto) (0-100) /uL RBC Morphology Poikilocytosis Anisocytosis Microcytosis Ovalocytes PT (10.1-12.7) SECONDS INR (0.9-1.3) APTT (26.4-36.2) SECONDS Sodium (137-145) mmol/L Potassium (3.4-5.1) mmol/L Chloride (98-107) mmol/L Carbon Dioxide (22-32) mmol/L BUN (7-17) mg/dL Creatinine (0.52-1.04) mg/dL Estimated GFR (>60) mL/min BUN/Creatinine Ratio (6-22) Glucose (70-100) mg/dL Lactate (0.7-2.1) mmol/L Calcium (8.4-10.2) mg/dL Magnesium (1.6-2.3) mg/dL Total Bilirubin (0.2-1.3) mg/dL AST (14-36) IU/L ALT (<35) IU/L Alkaline Phosphatase (38-126) U/L Total Protein (6.3-8.2) g/dL Albumin (3.5-5.0) g/dL Globulin (1.7-4.1) g/dL Albumin/Globulin Ratio (1.0-2.8) Lipase (23-300) U/L Serum , Qual (Negative) Urine RBC 1-5/hpf (0-5/HPF) Urine WBC 10-30/hpf H (0-5/HPF) Ur Squamous Epith Cells 1-5 /hpf (0-5/HPF) Amorphous Sediment 3+ Urine Bacteria Moderate (10-30) H (None) Ur Culture Indicated? Specimen cultured U Opiates 300ng/mL cut Positive H (Negative) Ur Oxycodone Screen Negative (Negative) Urine Methadone Screen Negative (Negative) Ur Barbiturates Screen Negative (Negative) U Tricyclic Antidepress Negative (Negative) Ur Phencyclidine Scrn Negative (Negative) Ur Amphetamines Screen Positive H (Negative) U Methamphetamines Scrn Positive H (Negative) Ur MDMA Scrn (Ecstasy) Negative (Negative) U Benzodiazepines Scrn Negative (Negative) Urine Cocaine Screen Negative (Negative) U Marijuana (THC) Screen Positive H (Negative) SARS-CoV-2 (PCR) Negative (Negative) 01/31/21 01/31/21 Range/Units 06:05 06:05 WBC 7.5 (4.5-11.0) X10^3/uL RBC 3.80 L (4.0-5.2) X10^6/uL Hgb 8.7 L (12.0-16.0) g/dL Hct 27.3 L (36-46) % MCV 71.8 L (80-100) fL MCH 23.0 L (26-34) PG MCHC 32.0 (30-36) % RDW 20.7 H (11.6-14.8) % Plt Count 300 (150-400) X10^3/uL Neut % (Auto) 64.7 (50-75) % Lymph % (Auto) 22.4 L (25-40) % Chaves % (Auto) 10.7 (3-14) % Eos % (Auto) 1.7 L (2-4) % Baso % (Auto) 0.5 (0-2) % Neut # (Auto) 4900 (8482-2751) /uL Lymph # (Auto) 1700 (5326-9083) /uL Chaves # (Auto) 800 (0-900) /uL Eos # (Auto) 100 (0-450) /uL Baso # (Auto) 0 (0-100) /uL RBC Morphology See below Poikilocytosis 1+ H Anisocytosis 1+ H D Microcytosis 1+ H Ovalocytes 1+ H PT (10.1-12.7) SECONDS INR (0.9-1.3) APTT (26.4-36.2) SECONDS Sodium 137 (137-145) mmol/L Potassium 3.4 (3.4-5.1) mmol/L Chloride 107 (98-107) mmol/L Carbon Dioxide 30 (22-32) mmol/L BUN 7 (7-17) mg/dL Creatinine 0.59 (0.52-1.04) mg/dL Estimated GFR > 60.0 (>60) mL/min BUN/Creatinine Ratio 11.9 (6-22) Glucose 92 (70-100) mg/dL Lactate (0.7-2.1) mmol/L Calcium 8.6 (8.4-10.2) mg/dL Magnesium (1.6-2.3) mg/dL Total Bilirubin (0.2-1.3) mg/dL AST (14-36) IU/L ALT (<35) IU/L Alkaline Phosphatase (38-126) U/L Total Protein (6.3-8.2) g/dL Albumin (3.5-5.0) g/dL Globulin (1.7-4.1) g/dL Albumin/Globulin Ratio (1.0-2.8) Lipase (23-300) U/L Serum , Qual (Negative) Urine RBC (0-5/HPF) Urine WBC (0-5/HPF) Ur Squamous Epith Cells (0-5/HPF) Amorphous Sediment Urine Bacteria (None) Ur Culture Indicated? U Opiates 300ng/mL cut (Negative) Ur Oxycodone Screen (Negative) Urine Methadone Screen (Negative) Ur Barbiturates Screen (Negative) U Tricyclic Antidepress (Negative) Ur Phencyclidine Scrn (Negative) Ur Amphetamines Screen (Negative) U Methamphetamines Scrn (Negative) Ur MDMA Scrn (Ecstasy) (Negative) U Benzodiazepines Scrn (Negative) Urine Cocaine Screen (Negative) U Marijuana (THC) Screen (Negative) SARS-CoV-2 (PCR) (Negative) Point of care testing: Point of Care Testing Test Results Negative Urine Dip Bedside Urine Glucose Negative Bedside Urine Bilirubin - Negative Bedside Urine Ketone - Negative Urine Specific [place] 1.010 Bedside Urine Occult Blood +++ Bedside Urine pH 8.5 Bedside Urine Protein +/- 15 Bedside Urine Urobilinogen - Negative Bedside Urine Nitrite - Negative Bedside Urine Leukocytes - Negative Esterase Imaging Data CT scan - abdomen/pelvis: Radiologist's Impression: [address] [place] [address] [id number] Scan ReportSigned Patient: Jordy AlexMR#: [id number]: [id number]:[id number]/Sex: 35 / FDate of Service: 01/30/21Loc: EDAccession Number: [id number] Procedure: CT abdomen pelvis w con Ordering Provider: Mae Story MEDICAL ASSISTANT- PROCEDURE: CT ABDOMEN PELVIS W CON INDICATIONS: abd pain, vomiting, no bms x days TECHNIQUE: After the administration of intravenous contrast, 5 mm thick sections acquired from the diaphragm to the symphysis. 5 mm coronal and sagittal reformats were acquired. For radiation dose reduction, the following was used: automated exposure control, adjustment of mA and/or kV according to patient size. COMPARISON: None. FINDINGS: Image quality: Excellent. ABDOMEN: Lung bases: Lung bases are clear. Heart size is normal. Solid organs: Liver is normal in size and enhancement. Gallbladder is unremarkable. Biliary system is non dilated. Pancreas enhances normally. Spleen is normal in size and enhancement. No adrenal nodules. Kidneys demonstrate normal size and enhancement, without hydronephrosis. Peritoneum and bowel: Marked diffuse edema of the gastric antrum pylorus. Question gastric antral ulcer. Bowel loops demonstrate normal wall thickness and caliber. No free fluid or air. Nodes and vessels: No retroperitoneal or mesenteric adenopathy by size criteria. Aorta and inferior vena cava are normal in size. Miscellaneous: No ventral hernias. PELVIS: Genitourinary: Bladder wall thickness is normal. Miscellaneous: No inguinal hernias or adenopathy. Bones: No suspicious bony lesions. No vertebral body compression fractures. Bilateral L5 pars defects with mild grade 1 anterolisthesis of L5 on S1. There is severe right L5-S1 foraminal narrowing and moderate left L5-S1 foraminal narrowing. The right L5 nerve root is impinged in the right foramen. IMPRESSION: 1. Marked edema of the gastric antrum and pylorus. Findings are consistent with impressive gastritis. Question anterior gastric antral ulcer. 2. Incidental note made of the presence of bilateral L5 pars defects, mild anterolisthesis of L5 on S1, and foraminal impingement on the right L5 nerve root. Dictated by: Aly Wynne M.D. on 01/30/2021 at 15:11 Approved by: Aly Wynne M.D. on 01/30/2021 at 15:15 [facility] Narrative Medical decision making narrative: The patient is a 35-year-old female who presents with a chief complaint of abdominal pain, nausea and vomiting. Her skin is concerning for significant gastritis, possible anterior gastric ulcer and CT scan. Her lab work is reassuring however, no leukocytosis or elevated lactate. Spoke with Dr Guerrero who suggested calling surgery, spoke with Dr Dc from general surgery who kindly viewed the patient's CT scan and encouraged fluids, Protonix, NG tube, admit to medicine and empirically treat for H pylori. The patient is okay with this plan, however adamantly declined an NG tube in the emergency department. Patient also declined NG tube from nursing. Patient was given Protonix, spoke with Tanner CARUSO who kindly accepted the patient for admission. He states he will start triple therapy for H pylori when she gets to the floor. Patient is COVID negative at this time, states understanding of admission and appreciation. <Mae Guerrero, DO - Last Filed: 01/31/21 18:51> Lab Data Labs: Lab Results 01/30/21 01/30/21 01/30/21 Range/Units 13:43 13:43 13:56 WBC 10.4 (4.5-11.0) X10^3/uL RBC 4.77 (4.0-5.2) X10^6/uL Hgb 10.8 L (12.0-16.0) g/dL Hct 34.3 L (36-46) % MCV 72.0 L (80-100) fL MCH 22.6 L (26-34) PG MCHC 31.4 (30-36) % RDW 20.9 H (11.6-14.8) % Plt Count 405 H (150-400) X10^3/uL Neut % (Auto) 75.2 H (50-75) % Lymph % (Auto) 16.9 L (25-40) % [place]aves % (Auto) 5.4 (3-14) % Eos % (Auto) 0.9 L (2-4) % Baso % (Auto) 1.6 (0-2) % Neut # (Auto) 7800 H (8086-3071) /uL Lymph # (Auto) 1800 (7926-5412) /uL [place] # (Auto) 600 (0-900) /uL Eos # (Auto) 100 (0-450) /uL Baso # (Auto) 200 H (0-100) /uL RBC Morphology Not Reportable Poikilocytosis 1+ H Anisocytosis 3+ H Microcytosis Ovalocytes PT (10.1-12.7) SECONDS INR (0.9-1.3) APTT (26.4-36.2) SECONDS Sodium (137-145) mmol/L Potassium (3.4-5.1) mmol/L Chloride (98-107) mmol/L Carbon Dioxide (22-32) mmol/L BUN (7-17) mg/dL Creatinine (0.52-1.04) mg/dL Estimated GFR (>60) mL/min BUN/Creatinine Ratio (6-22) Glucose (70-100) mg/dL Lactate 1.7 (0.7-2.1) mmol/L Calcium (8.4-10.2) mg/dL Magnesium (1.6-2.3) mg/dL Total Bilirubin (0.2-1.3) mg/dL AST (14-36) IU/L ALT (<35) IU/L Alkaline Phosphatase (38-126) U/L Total Protein (6.3-8.2) g/dL Albumin (3.5-5.0) g/dL Globulin (1.7-4.1) g/dL Albumin/Globulin Ratio (1.0-2.8) Lipase (23-300) U/L Serum , Qual Negative (Negative) Urine RBC (0-5/HPF) Urine WBC (0-5/HPF) Ur Squamous Epith Cells (0-5/HPF) Amorphous Sediment Urine Bacteria (None) Ur Culture Indicated? U Opiates 300ng/mL cut (Negative) Ur Oxycodone Screen (Negative) Urine Methadone Screen (Negative) Ur Barbiturates Screen (Negative) U Tricyclic Antidepress (Negative) Ur Phencyclidine Scrn (Negative) Ur Amphetamines Screen (Negative) U Methamphetamines Scrn (Negative) Ur MDMA Scrn (Ecstasy) (Negative) U Benzodiazepines Scrn (Negative) Urine Cocaine Screen (Negative) U Marijuana (THC) Screen (Negative) SARS-CoV-2 (PCR) (Negative) 01/30/21 01/30/21 01/30/21 Range/Units 13:56 13:56 13:56 WBC (4.5-11.0) X10^3/uL RBC (4.0-5.2) X10^6/uL Hgb (12.0-16.0) g/dL Hct (36-46) % MCV (80-100) fL MCH (26-34) PG MCHC (30-36) % RDW (11.6-14.8) % Plt Count (150-400) X10^3/uL Neut % (Auto) (50-75) % Lymph % (Auto) (25-40) % [place]aves % (Auto) (3-14) % Eos % (Auto) (2-4) % Baso % (Auto) (0-2) % Neut # (Auto) (8480-4735) /uL Lymph # (Auto) (3212-2440) /uL Chaves # (Auto) (0-900) /uL Eos # (Auto) (0-450) /uL Baso # (Auto) (0-100) /uL RBC Morphology Poikilocytosis Anisocytosis Microcytosis Ovalocytes PT 11.2 (10.1-12.7) SECONDS INR 1.0 (0.9-1.3) APTT 28 (26.4-36.2) SECONDS Sodium 136 L (137-145) mmol/L Potassium 3.6 (3.4-5.1) mmol/L Chloride 103 (98-107) mmol/L Carbon Dioxide 28 (22-32) mmol/L BUN 15 (7-17) mg/dL Creatinine 0.47 L (0.52-1.04) mg/dL Estimated GFR > 60.0 (>60) mL/min BUN/Creatinine Ratio 31.9 H (6-22) Glucose 122 H (70-100) mg/dL Lactate (0.7-2.1) mmol/L Calcium 9.5 (8.4-10.2) mg/dL Magnesium 2.0 (1.6-2.3) mg/dL Total Bilirubin 0.2 (0.2-1.3) mg/dL AST 24 (14-36) IU/L ALT 12 (<35) IU/L Alkaline Phosphatase 73 (38-126) U/L Total Protein 7.7 (6.3-8.2) g/dL Albumin 4.4 (3.5-5.0) g/dL Globulin 3.3 (1.7-4.1) g/dL Albumin/Globulin Ratio 1.3 (1.0-2.8) Lipase 72 (23-300) U/L Serum , Qual (Negative) Urine RBC (0-5/HPF) Urine WBC (0-5/HPF) Ur Squamous Epith Cells (0-5/HPF) Amorphous Sediment Urine Bacteria (None) Ur Culture Indicated? U Opiates 300ng/mL cut (Negative) Ur Oxycodone Screen (Negative) Urine Methadone Screen (Negative) Ur Barbiturates Screen (Negative) U Tricyclic Antidepress (Negative) Ur Phencyclidine Scrn (Negative) Ur Amphetamines Screen (Negative) U Methamphetamines Scrn (Negative) Ur MDMA Scrn (Ecstasy) (Negative) U Benzodiazepines Scrn (Negative) Urine Cocaine Screen (Negative) U Marijuana (THC) Screen (Negative) SARS-CoV-2 (PCR) (Negative) 01/30/21 01/30/21 01/30/21 Range/Units 16:00 16:00 18:00 WBC (4.5-11.0) X10^3/uL RBC (4.0-5.2) X10^6/uL Hgb (12.0-16.0) g/dL Hct (36-46) % MCV (80-100) fL MCH (26-34) PG MCHC (30-36) % RDW (11.6-14.8) % Plt Count (150-400) X10^3/uL Neut % (Auto) (50-75) % Lymph % (Auto) (25-40) % [place] % (Auto) (3-14) % Eos % (Auto) (2-4) % Baso % (Auto) (0-2) % Neut # (Auto) (0935-3985) /uL Lymph # (Auto) (2785-7500) /uL [place] # (Auto) (0-900) /uL Eos # (Auto) (0-450) /uL Baso # (Auto) (0-100) /uL RBC Morphology Poikilocytosis Anisocytosis Microcytosis Ovalocytes PT (10.1-12.7) SECONDS INR (0.9-1.3) APTT (26.4-36.2) SECONDS Sodium (137-145) mmol/L Potassium (3.4-5.1) mmol/L Chloride (98-107) mmol/L Carbon Dioxide (22-32) mmol/L BUN (7-17) mg/dL Creatinine (0.52-1.04) mg/dL Estimated GFR (>60) mL/min BUN/Creatinine Ratio (6-22) Glucose (70-100) mg/dL Lactate (0.7-2.1) mmol/L Calcium (8.4-10.2) mg/dL Magnesium (1.6-2.3) mg/dL Total Bilirubin (0.2-1.3) mg/dL AST (14-36) IU/L ALT (<35) IU/L Alkaline Phosphatase (38-126) U/L Total Protein (6.3-8.2) g/dL Albumin (3.5-5.0) g/dL Globulin (1.7-4.1) g/dL Albumin/Globulin Ratio (1.0-2.8) Lipase (23-300) U/L Serum , Qual (Negative) Urine RBC 1-5/hpf (0-5/HPF) Urine WBC 10-30/hpf H (0-5/HPF) Ur Squamous Epith Cells 1-5 /hpf (0-5/HPF) Amorphous Sediment 3+ Urine Bacteria Moderate (10-30) H (None) Ur Culture Indicated? Specimen cultured U Opiates 300ng/mL cut Positive H (Negative) Ur Oxycodone Screen Negative (Negative) Urine Methadone Screen Negative (Negative) Ur Barbiturates Screen Negative (Negative) U Tricyclic Antidepress Negative (Negative) Ur Phencyclidine Scrn Negative (Negative) Ur Amphetamines Screen Positive H (Negative) U Methamphetamines Scrn Positive H (Negative) Ur MDMA Scrn (Ecstasy) Negative (Negative) U Benzodiazepines Scrn Negative (Negative) Urine Cocaine Screen Negative (Negative) U Marijuana (THC) Screen Positive H (Negative) SARS-CoV-2 (PCR) Negative (Negative) 01/31/21 01/31/21 Range/Units 06:05 06:05 WBC 7.5 (4.5-11.0) X10^3/uL RBC 3.80 L (4.0-5.2) X10^6/uL Hgb 8.7 L (12.0-16.0) g/dL Hct 27.3 L (36-46) % MCV 71.8 L (80-100) fL MCH 23.0 L (26-34) PG MCHC 32.0 (30-36) % RDW 20.7 H (11.6-14.8) % Plt Count 300 (150-400) X10^3/uL Neut % (Auto) 64.7 (50-75) % Lymph % (Auto) 22.4 L (25-40) % [place] % (Auto) 10.7 (3-14) % Eos % (Auto) 1.7 L (2-4) % Baso % (Auto) 0.5 (0-2) % Neut # (Auto) 4900 (3233-5980) /uL Lymph # (Auto) 1700 (7870-4566) /uL [place] # (Auto) 800 (0-900) /uL Eos # (Auto) 100 (0-450) /uL Baso # (Auto) 0 (0-100) /uL RBC Morphology See below Poikilocytosis 1+ H Anisocytosis 1+ H D Microcytosis 1+ H Ovalocytes 1+ H PT (10.1-12.7) SECONDS INR (0.9-1.3) APTT (26.4-36.2) SECONDS Sodium 137 (137-145) mmol/L Potassium 3.4 (3.4-5.1) mmol/L Chloride 107 (98-107) mmol/L Carbon Dioxide 30 (22-32) mmol/L BUN 7 (7-17) mg/dL Creatinine 0.59 (0.52-1.04) mg/dL Estimated GFR > 60.0 (>60) mL/min BUN/Creatinine Ratio 11.9 (6-22) Glucose 92 (70-100) mg/dL Lactate (0.7-2.1) mmol/L Calcium 8.6 (8.4-10.2) mg/dL Magnesium (1.6-2.3) mg/dL Total Bilirubin (0.2-1.3) mg/dL AST (14-36) IU/L ALT (<35) IU/L Alkaline Phosphatase (38-126) U/L Total Protein (6.3-8.2) g/dL Albumin (3.5-5.0) g/dL Globulin (1.7-4.1) g/dL Albumin/Globulin Ratio (1.0-2.8) Lipase (23-300) U/L Serum , Qual (Negative) Urine RBC (0-5/HPF) Urine WBC (0-5/HPF) Ur Squamous Epith Cells (0-5/HPF) Amorphous Sediment Urine Bacteria (None) Ur Culture Indicated? U Opiates 300ng/mL cut (Negative) Ur Oxycodone Screen (Negative) Urine Methadone Screen (Negative) Ur Barbiturates Screen (Negative) U Tricyclic Antidepress (Negative) Ur Phencyclidine Scrn (Negative) Ur Amphetamines Screen (Negative) U Methamphetamines Scrn (Negative) Ur MDMA Scrn (Ecstasy) (Negative) U Benzodiazepines Scrn (Negative) Urine Cocaine Screen (Negative) U Marijuana (THC) Screen (Negative) SARS-CoV-2 (PCR) (Negative) Point of care testing: Point of Care Testing Test Results Negative Urine Dip Bedside Urine Glucose Negative Bedside Urine Bilirubin - Negative Bedside Urine Ketone - Negative Urine Specific [place] 1.010 Bedside Urine Occult Blood +++ Bedside Urine pH 8.5 Bedside Urine Protein +/- 15 Bedside Urine Urobilinogen - Negative Bedside Urine Nitrite - Negative Bedside Urine Leukocytes - Negative Esterase Discharge Plan Departure Patient Disposition: Admitted as Observation Clinical Impression: Abdominal pain Qualifiers: Abdominal location: generalized Qualified Code(s): R10.84 - Generalized abdominal pain Gastritis Qualifiers: Gastritis type: unspecified gastritis Chronicity: unspecified Gastritis bleeding: presence of bleeding unspecified Qualified Code(s): K29.70 - Gastritis, unspecified, without bleeding Admit Date/Time: 01/31/21 09:30 Admit Provider: Carlos Hart <Mae Guerrero DO - Last Filed: 01/31/21 18:51> Cosign ED Attending Cosignature Attestation: I was immediately available in the department for consultation. Documentation has been reviewed. Case was discussed and with CT imaging findings recommendation for follow-up with General surgery. Dr. Dc was consulted who recommends admission for further evaluation.
[2021-01-30] MEDS: SODIUM CHLORIDE 0.9% 1,000 ML 250 ML IV (17:57)
[2021-01-30] MEDS: PANTOPRAZOLE 40 MG VIAL IV ×2 (17:58→20:31)
--- NOTE | 2021-01-30 18:02 | PC.NURSE ---
pt refused ngt insertion. explained the benefits and she refused at this time.
[2021-01-30 19:16] LABS: COVID19 - ADMIT (NP swab/PCR) Negative (Negative)
[2021-01-30] MEDS: LACTATED RINGERS 1,000 ML 125 ML IV (20:31)
--- NOTE | 2021-01-30 20:42 | PM.HP.1 ---
History of Present Illness History of Present Illness Date Patient Seen: 01/30/21 Time Patient Seen: 20:31 Chief complaint: ABDOMINAL PAIN, STARTED ABOUT 2 DAYS AGO Narrative: Ms. Jordy Alex is a 35-year-old female with past medical history migraines and psoriatic arthritis and polysubstance abuse presents to the ER with mid abdominal. The patient describes developing kena umbilical abdominal pain 2 days ago with intermittent radiation up into the chest. The pain has been somewhat colicky character waxing and waning with associated nausea with no vomiting until today. She reports reflux symptoms with acid taste in her mouth and episodic chest discomfort The patient describes her emesis as bile. Patient additionally reports that she has not a bowel movement in 2 days and is typically very regular and has had no abnormal stool, hematochezia melena. Patient additionally reports that she took several tablets of ibuprofen for tooth pain 4 days ago. The patient did take Pepto-Bismol with transient improvement in symptoms. The patient denies systemic symptoms of headache or dizziness, fevers or chills. She had no nasal congestion or sore throat. She denies complaints chest pain but does endorse radiating pain her stomach into her chest. She has had no palpitations and denies shortness of breath cough or wheezing. Abdominal pain as above. The patient denies urinary symptoms no complaints hematuria, urgency, frequency or burning. She is currently on her menstrual period beginning 5 days ago and typically lasting 7 days. Patient endorses a history marijuana use for 21 years and states her last methenamine exposure was 4 days ago walking into a room of meth smokers. The patient His multiple well-healed scars with a past history of cutting. Upon admission to the ED initial vital signs are temperature of 97.6?, heart rate of 74, blood pressure 171/111, respirations 16 saturating 100% on room air. Her blood pressure subsequently has diminished down to 163/98 while in the ER and 132/92 upon admission to acute care floor. Imaging is obtained which is remarkable for marked diffuse edema the gastric antrum and pylorus with a question of gastric antral ulcer. There was incidental finding and L5 pars defect with mild anterolisthesis of L5 on S1. Initial lab results find white count of 10.4 with mild elevation neutrophils at 7800, and H&H of 10.8 and 34.3 and platelets of 405. Her coagulation studies are all within normal limits as are her chemistries with a BUN of 15 and creatinine 0.47. Her nonfasting glucose is 122. Her liver functions are all within normal limits and lipase is 72 and albumin is 4.4. Her lactic acid is 1.7. Serum test is negative. COVID screening is also negative. Urinalysis reveals a specific gravity of 1.010, is positive for blood and protein WBCs and moderate bacteria, UA negative for nitrites and leukocyte esterase. Urine tox screen is positive for opiates (the patient has received morphine in the ER), amphetamine/methamphetamine, marijuana. In the ER the patient received initial dose of Protonix 40 mg IV Zofran 4 mg x 2 as well as morphine sulfate 2 mg x 2 with significant improvement in pain and nausea. Patient received 2 L normal saline. In the ER the patient refused NG tube to both nursing and ER provider. Dr. Dc was asked to consult, she review the imaging and evaluated the patient in the emergency department. In conversation with Dr. Dc she notes the patient has distended stomach on CT exam and would significantly benefit placement NG tube to which the patient tentatively agreed. The patient is admitted to the medicine service for marked gastritis of unclear etiology. Patient History Medical History (Updated 01/30/21 @ 21:19 by SHADY Vizcaino) Migraine headache Polysubstance abuse Psoriatic arthritis Surgical History (Updated 01/30/21 @ 21:19 by SHADY Vizcaino) History of tubal ligation Family & Social History Family History (Updated 01/30/21 @ 21:21 by SHADY Vizcaino) Father Hypertension Mother Alcoholism Grandmother Diabetes mellitus Sister Lupus Family/Other Multiple sclerosis Safety & Behavioral: Feels Safe in Current Yes Environment Been Physically Hurt or No Threatened By a Person Tobacco & Substance use: Smoking Status Current every day smoker Substance Use Type marijuana,methamphetamine Comment: Current smoker 1/2 pack per day, 10 pack-year history. Patient endorses a 21 year history marijuana use. History of methamphetamine use last exposure reportedly 4 days ago. Patient denies alcohol consumption. Meds Home Medications and Allergies Home Medications Medication Instructions Recorded Confirmed Type No Known Home Medications 01/30/21 01/30/21 History Allergies Allergy/AdvReac Type Severity Reaction Status Date / Time hydrocodone [HYDROCODONE] Allergy Mild ITCHING Verified 01/30/21 19:32 Review of Systems Review of Systems ROS: Yes All systems reviewed with the patient and are negative except as otherwise documented Exam Vital Signs (past 8 hours): - 01/30/21 13:49 01/30/21 13:58 01/30/21 14:00 Temperature 97.6 F Pulse Rate 74 61 61 Respiratory Rate 16 Blood Pressure 171/111 H Pulse Oximetry 97 100 100 01/30/21 14:30 01/30/21 15:00 01/30/21 15:30 Temperature Pulse Rate 57 L 60 54 L Respiratory Rate Blood Pressure 181/109 H 190/105 H 191/104 H Pulse Oximetry 100 100 100 01/30/21 15:40 01/30/21 15:55 01/30/21 16:00 Temperature Pulse Rate 62 62 52 L Respiratory Rate Blood Pressure 175/94 H Pulse Oximetry 100 98 100 01/30/21 16:01 01/30/21 16:30 01/30/21 16:31 Temperature Pulse Rate 53 L 51 L 53 L Respiratory Rate Blood Pressure 185/111 H 172/96 H Pulse Oximetry 100 100 100 01/30/21 17:00 01/30/21 17:01 01/30/21 17:30 Temperature Pulse Rate 54 L 56 L 57 L Respiratory Rate Blood Pressure 170/99 H 165/98 H Pulse Oximetry 100 100 100 01/30/21 18:00 01/30/21 18:01 01/30/21 18:30 Temperature Pulse Rate 59 L 59 L 70 Respiratory Rate 16 Blood Pressure 164/98 H 167/109 H Pulse Oximetry 100 100 100 01/30/21 19:00 01/30/21 19:30 01/30/21 20:05 Temperature 96.7 F L Pulse Rate 53 L 62 79 Respiratory Rate 18 18 Blood Pressure 166/90 H 155/96 H 139/84 Pulse Oximetry 100 100 100 01/30/21 20:15 Temperature 98 F Pulse Rate 70 Respiratory Rate 18 Blood Pressure 139/92 H Pulse Oximetry 100 Oxygen Delivery Method Room Air Oxygen Flow Rate 0 Narrative Exam Narrative: GENERAL APPEARANCE: well developed, adequately nourished thin female with BMI of 23.3, in no acute distress. HEENT: Normocephalic, PERRLA, conjunctiva clear, EOMs intact without nystagmus, no sinus tenderness to percussion, no rhinorrhea, poor dentition with multiple missing teeth, mucous membranes are dry. NECK/THYROID: neck supple, no JVD, no thyromegaly, trachea midline. LYMPH NODES: no cervical or supraclavicular lymphadenopathy. SKIN: [place], warm and dry, multiple well-healed scars on extremities. HEART: regular rate and rhythm, S1-S2, no murmur, no rubs or gallops, brisk capillary refill, no edema LUNGS: clear to auscultation bilaterally, no coarseness crackles or wheezing, no cough present. CHEST: Symmetrical movement, no accessory muscle use, good tidal volume, no pain on AP or lateral compression. ABDOMEN: Soft, Flat, dull to percussion, bilateral upper abdominal and epigastric Pain on palpation, no guarding or peritoneal signs, no organomegaly, no flank or suprapubic tenderness, active bowel tones. BACK: Normal curvature, nontender to palpation, no CVA tenderness on percussion EXTREMITIES: moves all extremities, strength is 5/5 and symmetrical, no deformities or joint effusions, no cyanosis or clubbing, ambulatory with stable gait. NEUROLOGIC: AAO x4, no focal neurologic deficits, cranial nerves II-XII grossly intact, sensation intact to light touch, hearing grossly normal to speech. PSYCH: Alert briskly responsive, cooperative, stable behavior Objective Labs Result Diagrams: 01/30/21 13:56 01/30/21 13:56 Labs: Laboratory Results - last 24 hr 01/30/21 01/30/21 01/30/21 13:43 13:43 13:56 WBC 10.4 RBC 4.77 Hgb 10.8 L Hct 34.3 L MCV 72.0 L MCH 22.6 L MCHC 31.4 RDW 20.9 H Plt Count 405 H Neut % (Auto) 75.2 H Lymph % (Auto) 16.9 L [place] % (Auto) 5.4 Eos % (Auto) 0.9 L Baso % (Auto) 1.6 Neut # (Auto) 7800 H Lymph # (Auto) 1800 [place] # (Auto) 600 Eos # (Auto) 100 Baso # (Auto) 200 H RBC Morphology Not Reportable Poikilocytosis 1+ H Anisocytosis 3+ H PT INR APTT Sodium Potassium Chloride Carbon Dioxide BUN Creatinine Estimated GFR BUN/Creatinine Ratio Glucose Lactate 1.7 Calcium Magnesium Total Bilirubin AST ALT Alkaline Phosphatase Total Protein Albumin Globulin Albumin/Globulin Ratio Lipase Serum , Qual Negative Urine RBC Urine WBC Ur Squamous Epith Cells Amorphous Sediment Urine Bacteria Ur Culture Indicated? U Opiates 300ng/mL cut Ur Oxycodone Screen Urine Methadone Screen Ur Barbiturates Screen U Tricyclic Antidepress Ur Phencyclidine Scrn Ur Amphetamines Screen U Methamphetamines Scrn Ur MDMA Scrn (Ecstasy) U Benzodiazepines Scrn Urine Cocaine Screen U Marijuana (THC) Screen SARS-CoV-2 (PCR) 01/30/21 01/30/21 01/30/21 13:56 13:56 13:56 WBC RBC Hgb Hct MCV MCH MCHC RDW Plt Count Neut % (Auto) Lymph % (Auto) [place] % (Auto) Eos % (Auto) Baso % (Auto) Neut # (Auto) Lymph # (Auto) [place] # (Auto) Eos # (Auto) Baso # (Auto) RBC Morphology Poikilocytosis Anisocytosis PT 11.2 INR 1.0 APTT 28 Sodium 136 L Potassium 3.6 Chloride 103 Carbon Dioxide 28 BUN 15 Creatinine 0.47 L Estimated GFR > 60.0 BUN/Creatinine Ratio 31.9 H Glucose 122 H Lactate Calcium 9.5 Magnesium 2.0 Total Bilirubin 0.2 AST 24 ALT 12 Alkaline Phosphatase 73 Total Protein 7.7 Albumin 4.4 Globulin 3.3 Albumin/Globulin Ratio 1.3 Lipase 72 Serum , Qual Urine RBC Urine WBC Ur Squamous Epith Cells Amorphous Sediment Urine Bacteria Ur Culture Indicated? U Opiates 300ng/mL cut Ur Oxycodone Screen Urine Methadone Screen Ur Barbiturates Screen U Tricyclic Antidepress Ur Phencyclidine Scrn Ur Amphetamines Screen U Methamphetamines Scrn Ur MDMA Scrn (Ecstasy) U Benzodiazepines Scrn Urine Cocaine Screen U Marijuana (THC) Screen SARS-CoV-2 (PCR) 01/30/21 01/30/21 01/30/21 16:00 16:00 18:00 WBC RBC Hgb Hct MCV MCH MCHC RDW Plt Count Neut % (Auto) Lymph % (Auto) [place] % (Auto) Eos % (Auto) Baso % (Auto) Neut # (Auto) Lymph # (Auto) [place] # (Auto) Eos # (Auto) Baso # (Auto) RBC Morphology Poikilocytosis Anisocytosis PT INR APTT Sodium Potassium Chloride Carbon Dioxide BUN Creatinine Estimated GFR BUN/Creatinine Ratio Glucose Lactate Calcium Magnesium Total Bilirubin AST ALT Alkaline Phosphatase Total Protein Albumin Globulin Albumin/Globulin Ratio Lipase Serum , Qual Urine RBC 1-5/hpf Urine WBC 10-30/hpf H Ur Squamous Epith Cells 1-5 /hpf Amorphous Sediment 3+ Urine Bacteria Moderate (10-30) H Ur Culture Indicated? Specimen cultured U Opiates 300ng/mL cut Positive H Ur Oxycodone Screen Negative Urine Methadone Screen Negative Ur Barbiturates Screen Negative U Tricyclic Antidepress Negative Ur Phencyclidine Scrn Negative Ur Amphetamines Screen Positive H U Methamphetamines Scrn Positive H Ur MDMA Scrn (Ecstasy) Negative U Benzodiazepines Scrn Negative Urine Cocaine Screen Negative U Marijuana (THC) Screen Positive H SARS-CoV-2 (PCR) Negative Assessment & Plan Assessment & Plan narrative: This is a 35-year-old female patient who presents ER severe abdominal pain described as mid abdomen radiating up into the chest for 2 days found to have marked gastric edema with gastric outlet obstruction on CT exam. The patient has had no prior history of similar abdominal pain or heartburn the patient does endorse taking ibuprofen for headaches and tooth pain. 1. Acute marked gastritis with antral and pyloric edema, present on admission, active. -patient with upper abdominal pain on exam most prominent in the epigastrium with radiation up into the chest. No reports hematemesis, hematochezia or melena. She reports no bowel movement for the last 2 days -mild anemia with a hemoglobin and hematocrit of 10.8 and 34.3 respectively. White blood cell count is 10.4 with mild elevation in neutrophils it is 7800. -CT exam finds marked diffuse edema of gastric antrum and pylorus, question gastric ulcer, distended stomach related to gastric outlet obstruction. -general surgery is consulted Dr. Dc has seen the patient and strongly recommended NG tube which the patient refused in the ED. discussed NG tube placed with the patient offered lidocaine jelly to facilitate tube placement. Patient agreed to NG tube trauma place to low intermittent wall suction -patient will remain NPO, lactated Ringer's at 125 cc/hour -Protonix 40 mg twice daily 1st dose administered in the emergency department. -empiric quadruple treatment for H pylori: Levaquin 500 mg daily, amoxicillin 1000 mg via NG tube S daily, bismuth 4 times daily and Protonix as above. -ordered stool for H pylori and guaiac, will recheck CBC in the morning. -tentative plan for upper endoscopy tomorrow. 2. Polysubstance abuse, chronic, stable -urine drug screen positive for opiates (administered in the ER), methamphetamine/amphetamine and marijuana. -patient source is a 21 year history of marijuana smoking and has not experienced hyperemesis syndrome. 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 She reports last exposure was walking to a room of meth smokers 4 days ago. -patient remains behaviorally stable and cooperative. 3. Current daily smoker, chronic, stable -patient sources smoking approximately 1/2 pack per day for 20 years. -offered nicotine patch which the patient declined. -patient counseled on smoking cessation. VTE prophylaxis: SCDs, chemical prophylaxis held pending surgical evaluation, possible endoscopy and concern for anemia related to gastric ulcer. IV fluid: Lactated Ringer's 125 cc/hour Diet: NPO Code status: Full code, patient designates her boyfriend Babak to be her surrogate decision maker. The patient is admitted to the hospital due to the severity of her symptoms requiring further evaluation, treatment and interventions. The patient is admitted as observation with expected length of stay to be less than 2 midnights. COVID-19 COVID-19 status: Negative Result date/Date tested (Pos, Neg/Pending): 01/30/21 Scores GCS Tania coma scale eye opening: Spontaneous Tania coma scale verbal response: Orientated [place] coma scale motor response: Obey commands Tania coma scale total score: 15
--- NOTE | 2021-01-30 20:56 | PM.CN ---
History of Present Illness Consult details Date Patient Seen: 01/30/21 Time Patient Seen: 20:56 Chief complaint: ABDOMINAL PAIN, STARTED ABOUT 2 DAYS AGO Reason for consult: Gastric outlet thickening/obstruction Requesting provider: Mae Story Narrative: This is a 35-year-old woman with history of migraines, psoriatic arthritis, and poly substance abuse who comes in with 2 day history of supraumbilical and epigastric abdominal pain associated with nausea and vomiting. She says that the pain came on about 2 days ago right after she took 5 ibuprofen tablets at once on empty stomach. She says that she takes that much ibuprofen 1 to 2 times a week, but never without eating 1st. She denies fevers, chills, hematemesis. She reports feeling bloated and constipated. She has been vomiting bilious fluid. She most recently vomited in the trash can outside the ER. In the ER she had a CT scan which showed a profound thickening of her gastric antrum and pylorus. Her pancreas and biliary tree appeared normal on the CT scan. Her labs are fairly normal other than a slight left shift, and low-grade anemia (hemoglobin 10.8). Her blood tested positive for opioids, marijuana, and meth in the ER. She says her pain has improved since getting pain medicine in the ER. ROS: GENERAL: Denies chills, fatigue, malaise, fever, sweats. HEENT: Denies sinus pain, ear pain, sore throat, difficulty swallowing, dizziness. RESPIRATORY: Denies dyspnea, cough, wheezing, hemoptysis, sputum. CARDIOVASCULAR: Denies chest pain, palpitations, orthopnea, edema, GASTROINTESTINAL: See HPI : Denies dysuria, frequency, incontinence, hematuria, urinary retention. MUSCULOSKELETAL: denies weakness, joint pain, or bony pain SKIN: Denies rash, skin lesions, or other NEUROLOGIC: Denies weakness, headache, numbness, change in speech, confusion, seizures, incoordination. PSYCHIATRIC: No concerning psychosocial issues. PE: GENERAL: Alert, in mild distress due to discomfort, fatigued appearing. Appears stated age. Answers questions promptly and appropriately. Vital signs noted. HENT: Normocephalic, atraumatic. Hearing intact. EYES: Conjunctiva pink, sclera white, no periorbital swelling. CARDIOVASCULAR: Regular rate. No pedal edema. RESPIRATORY: Non-tachypneic, breathing comfortably on room air. GASTROINTESTINAL: Abdomen soft and non-distended, mildly tender to palpation in the epigastrium and supraumbilical area GENITALURINARY: No flank tenderness. MUSCULOSKELETAL: Equal tone and mass bilaterally. SKIN: Warm, dry, soft, appropriate color for ethnicity. No other lesions, rashes, or wounds. NEURO: Alert and Oriented X 3. No gross sensory deficits, or cognitive issues. PSYCH: Appropriate affect and mood. Meds Home Medications and Allergies Home Medications Medication Instructions Recorded Confirmed Type No Known Home Medications 01/30/21 01/30/21 History Allergies Allergy/AdvReac Type Severity Reaction Status Date / Time hydrocodone [HYDROCODONE] Allergy Mild ITCHING Verified 01/30/21 19:32 Exam Vital Signs (past 8 hours): - 01/30/21 13:49 01/30/21 13:58 01/30/21 14:00 Temperature 97.6 F Pulse Rate 74 61 61 Respiratory Rate 16 Blood Pressure 171/111 H Pulse Oximetry 97 100 100 01/30/21 14:30 01/30/21 15:00 01/30/21 15:30 Temperature Pulse Rate 57 L 60 54 L Respiratory Rate Blood Pressure 181/109 H 190/105 H 191/104 H Pulse Oximetry 100 100 100 01/30/21 15:40 01/30/21 15:55 01/30/21 16:00 Temperature Pulse Rate 62 62 52 L Respiratory Rate Blood Pressure 175/94 H Pulse Oximetry 100 98 100 01/30/21 16:01 01/30/21 16:30 01/30/21 16:31 Temperature Pulse Rate 53 L 51 L 53 L Respiratory Rate Blood Pressure 185/111 H 172/96 H Pulse Oximetry 100 100 100 01/30/21 17:00 01/30/21 17:01 01/30/21 17:30 Temperature Pulse Rate 54 L 56 L 57 L Respiratory Rate Blood Pressure 170/99 H 165/98 H Pulse Oximetry 100 100 100 01/30/21 18:00 01/30/21 18:01 01/30/21 18:30 Temperature Pulse Rate 59 L 59 L 70 Respiratory Rate 16 Blood Pressure 164/98 H 167/109 H Pulse Oximetry 100 100 100 01/30/21 19:00 01/30/21 19:30 01/30/21 20:05 Temperature 96.7 F L Pulse Rate 53 L 62 79 Respiratory Rate 18 18 Blood Pressure 166/90 H 155/96 H 139/84 Pulse Oximetry 100 100 100 01/30/21 20:15 Temperature 98 F Pulse Rate 70 Respiratory Rate 18 Blood Pressure 139/92 H Pulse Oximetry 100 Oxygen Delivery Method Room Air Oxygen Flow Rate [address] scan - abdomen: Radiologist's impression: [address] [place] [address] [id number] Scan ReportSigned Patient: Jordy Alex#: [id number]: 1985Acct:[id number]/Sex: 35 / FDate of Service: 01/30/21Loc: EDAccession Number: [id number] Procedure: CT abdomen pelvis w con Ordering Provider: Mae Story [employer] PROCEDURE: CT ABDOMEN PELVIS W CON INDICATIONS: abd pain, vomiting, no bms x days TECHNIQUE: After the administration of intravenous contrast, 5 mm thick sections acquired from the diaphragm to the symphysis. 5 mm coronal and sagittal reformats were acquired. For radiation dose reduction, the following was used: automated exposure control, adjustment of mA and/or kV according to patient size. COMPARISON: None. FINDINGS: Image quality: Excellent. ABDOMEN: Lung bases: Lung bases are clear. Heart size is normal. Solid organs: Liver is normal in size and enhancement. Gallbladder is unremarkable. Biliary system is non dilated. Pancreas enhances normally. Spleen is normal in size and enhancement. No adrenal nodules. Kidneys demonstrate normal size and enhancement, without hydronephrosis. Peritoneum and bowel: Marked diffuse edema of the gastric antrum pylorus. Question gastric antral ulcer. Bowel loops demonstrate normal wall thickness and caliber. No free fluid or air. Nodes and vessels: No retroperitoneal or mesenteric adenopathy by size criteria. Aorta and inferior vena cava are normal in size. Miscellaneous: No ventral hernias. PELVIS: Genitourinary: Bladder wall thickness is normal. Miscellaneous: No inguinal hernias or adenopathy. Bones: No suspicious bony lesions. No vertebral body compression fractures. Bilateral L5 pars defects with mild grade 1 anterolisthesis of L5 on S1. There is severe right L5-S1 foraminal narrowing and moderate left L5-S1 foraminal narrowing. The right L5 nerve root is impinged in the right foramen. IMPRESSION: 1. Marked edema of the gastric antrum and pylorus. Findings are consistent with impressive gastritis. Question anterior gastric antral ulcer. 2. Incidental note made of the presence of bilateral L5 pars defects, mild anterolisthesis of L5 on S1, and foraminal impingement on the right L5 nerve root. Labs Result Diagrams: 01/30/21 13:56 01/30/21 13:56 Labs: Laboratory Results - last 24 hr 01/30/21 01/30/21 01/30/21 13:43 13:43 13:56 WBC 10.4 RBC 4.77 Hgb 10.8 L Hct 34.3 L MCV 72.0 L MCH 22.6 L MCHC 31.4 RDW 20.9 H Plt Count 405 H Neut % (Auto) 75.2 H Lymph % (Auto) 16.9 L [place] % (Auto) 5.4 Eos % (Auto) 0.9 L Baso % (Auto) 1.6 Neut # (Auto) 7800 H Lymph # (Auto) 1800 [place] # (Auto) 600 Eos # (Auto) 100 Baso # (Auto) 200 H RBC Morphology Not Reportable Poikilocytosis 1+ H Anisocytosis 3+ H PT INR APTT Sodium Potassium Chloride Carbon Dioxide BUN Creatinine Estimated GFR BUN/Creatinine Ratio Glucose Lactate 1.7 Calcium Magnesium Total Bilirubin AST ALT Alkaline Phosphatase Total Protein Albumin Globulin Albumin/Globulin Ratio Lipase Serum , Qual Negative Urine RBC Urine WBC Ur Squamous Epith Cells Amorphous Sediment Urine Bacteria Ur Culture Indicated? U Opiates 300ng/mL cut Ur Oxycodone Screen Urine Methadone Screen Ur Barbiturates Screen U Tricyclic Antidepress Ur Phencyclidine Scrn Ur Amphetamines Screen U Methamphetamines Scrn Ur MDMA Scrn (Ecstasy) U Benzodiazepines Scrn Urine Cocaine Screen U Marijuana (THC) Screen SARS-CoV-2 (PCR) 01/30/21 01/30/21 01/30/21 13:56 13:56 13:56 WBC RBC Hgb Hct MCV MCH MCHC RDW Plt Count Neut % (Auto) Lymph % (Auto) [place] % (Auto) Eos % (Auto) Baso % (Auto) Neut # (Auto) Lymph # (Auto) [place] # (Auto) Eos # (Auto) Baso # (Auto) RBC Morphology Poikilocytosis Anisocytosis PT 11.2 INR 1.0 APTT 28 Sodium 136 L Potassium 3.6 Chloride 103 Carbon Dioxide 28 BUN 15 Creatinine 0.47 L Estimated GFR > 60.0 BUN/Creatinine Ratio 31.9 H Glucose 122 H Lactate Calcium 9.5 Magnesium 2.0 Total Bilirubin 0.2 AST 24 ALT 12 Alkaline Phosphatase 73 Total Protein 7.7 Albumin 4.4 Globulin 3.3 Albumin/Globulin Ratio 1.3 Lipase 72 Serum , Qual Urine RBC Urine WBC Ur Squamous Epith Cells Amorphous Sediment Urine Bacteria Ur Culture Indicated? U Opiates 300ng/mL cut Ur Oxycodone Screen Urine Methadone Screen Ur Barbiturates Screen U Tricyclic Antidepress Ur Phencyclidine Scrn Ur Amphetamines Screen U Methamphetamines Scrn Ur MDMA Scrn (Ecstasy) U Benzodiazepines Scrn Urine Cocaine Screen U Marijuana (THC) Screen SARS-CoV-2 (PCR) 01/30/21 01/30/21 01/30/21 16:00 16:00 18:00 WBC RBC Hgb Hct MCV MCH MCHC RDW Plt Count Neut % (Auto) Lymph % (Auto) [place] % (Auto) Eos % (Auto) Baso % (Auto) Neut # (Auto) Lymph # (Auto) [place] # (Auto) Eos # (Auto) Baso # (Auto) RBC Morphology Poikilocytosis Anisocytosis PT INR APTT Sodium Potassium Chloride Carbon Dioxide BUN Creatinine Estimated GFR BUN/Creatinine Ratio Glucose Lactate Calcium Magnesium Total Bilirubin AST ALT Alkaline Phosphatase Total Protein Albumin Globulin Albumin/Globulin Ratio Lipase Serum , Qual Urine RBC 1-5/hpf Urine WBC 10-30/hpf H Ur Squamous Epith Cells 1-5 /hpf Amorphous Sediment 3+ Urine Bacteria Moderate (10-30) H Ur Culture Indicated? Specimen cultured U Opiates 300ng/mL cut Positive H Ur Oxycodone Screen Negative Urine Methadone Screen Negative Ur Barbiturates Screen Negative U Tricyclic Antidepress Negative Ur Phencyclidine Scrn Negative Ur Amphetamines Screen Positive H U Methamphetamines Scrn Positive H Ur MDMA Scrn (Ecstasy) Negative U Benzodiazepines Scrn Negative Urine Cocaine Screen Negative U Marijuana (THC) Screen Positive H SARS-CoV-2 (PCR) Negative Assessment & Plan Assessment and plan (1) Abdominal pain: Qualifiers: Abdominal location: generalized Qualified Code(s): R10.84 - Generalized abdominal pain Status: Acute (2) Gastritis: Qualifiers: Chronicity: unspecified Gastritis bleeding: presence of bleeding unspecified Gastritis type: unspecified gastritis Qualified Code(s): K29.70 - Gastritis, unspecified, without bleeding Status: Acute (3) Partial gastric outlet obstruction: Status: Acute (4) Gastric wall thickening: Status: Acute (5) Methamphetamine use: Status: Acute Assessment & Plan narrative: This is a 35-year-old woman with 2 days of severe abdominal pain after taking 5 ibuprofen on an empty stomach. She reports that she does this frequently but not use an anti stomach. Her CT scan is concerning for partial gastric outlet obstruction due to massively thickened gastric antrum. Recommendations: Double dose PPI NG tube to low intermittent suction Empiric antibiotic treatment of H pylori NPO IV fluids Possible EGD under general anesthesia, or upper GI swallowing study in the morning depending on anesthesiologist decision regarding meth positive blood test COVID-19 COVID-19 status: Negative Result date/Date tested (Pos, Neg/Pending): 01/30/21 Time Spent With Patient Time with patient: 25 - 35 minutes
[2021-01-30] MEDS: levoFLOXacin 500 MG/100 ML PIGGYBACK 100 MG IV (21:59)
[2021-01-30] MEDS: LIDOCAINE 2% (UROJET) 5 ML GEL TOP (22:25)
[2021-01-30] MEDS: LIDOCAINE 2% (UROJET) 5 ML GEL (22:39)
--- NOTE | 2021-01-30 22:46 | DI.RAD.S_ITS ---
PROCEDURE: XR CHEST 1V INDICATIONS: NG tube placement TECHNIQUE: One view of the chest was acquired. COMPARISON: None. FINDINGS: Surgical changes and devices: NG tube coils in the region of the fundus stomach. Lungs and pleura: Lungs are clear. No pleural effusions or pneumothorax. Mediastinum: Mediastinal contours appear normal. Heart size is normal. Bones and chest wall: No suspicious bony lesions. Overlying soft tissues appear unremarkable. IMPRESSION: Satisfactory NG tube placement. Dictated by: lAy Wynne M.D. on 01/31/2021 at 6:56 Approved by: Aly Wynne M.D. on 01/31/2021 at 6:56
[2021-01-31] VITALS (12 sets, daily range): BP systolic 124–145; BP diastolic 73–94; PULSE 68–101; RESP 15–19; TEMP 36.6–37.2; O2SAT 98–100
--- NOTE | 2021-01-31 | PATH_ITS ---
[facility] Accession Number: [id number] . 01 Material submitted: . PART A: duodenum - DUODENUM PART B: gastrointestinal site - STOMACH . 01 Clinical history: . B: RULE OUT H.PYLORI ABDOMINAL PAIN, STARTED ABOUT 2 DAYS AGO . 02 Diagnosis: A. Duodenum, Biopsy: Duodenal mucosa with no diagnostic abnormality. Negative for active inflammation, features of sprue, dysplasia, or malignancy. . B. Stomach, Biopsy: Helicobacter pylori gastritis confirmed by immunohistochemistry. Negative for intestinal metaplasia. Negative for dysplasia and malignancy. [facility] 02/04/2021 1414 Local . 02 Electronically signed: . Renee Toney MD, Pathologist NPI- [id number] . 01 Gross description: . Part A: DUODENUM: Received in formalin is 1 fragment(s) of luevano, soft tissue measuring 0.3 x 0.3 x 0.1 cm submitted entirely in 1 cassette(s) Part B: STOMACH: Received in formalin are 2 fragment(s) of luevano, soft tissue measuring 0.4 x 0.3 x 0.1 cm to 0.3 x 0.2 x 0.1 cm submitted entirely in 1 cassette(s) /[facility] 02/02/2021 0648 Local . 02 Microscopic: . B. An immunohistochemical stain was performed to evaluate for Helicobacter organisms and is positive. The control stain showed appropriate reactivity. . * This test was developed and its performance characteristics determined by [employer]. It has not been cleared or approved by the U.S. Food and Drug Administration. The FDA has determined that such clearance or approval is not necessary. This test is used for clinical purposes. It should not be regarded as investigational or for research. . 02 Pathologist provided ICD-10: R10.9, B96.81 . 02 CPT . 509528, 338491, R52140 Performed at: 01 [facility] [address] [place] [address], [place], [place] [id number] MD Luis Oro MD Phone: [phone] Performed at: 02 [facility] [address] [place], [place] [id number] MD Renee Toney MD Phone: [phone]
[2021-01-31] MEDS: AMOXICILLIN 250 MG/5 ML PREPACK 1 BOTTLE MISC (00:24)
[2021-01-31] MEDS: BISMUTH SUBSALICYLATE 525 MG/30 ML SUSP PO (00:36)
[2021-01-31 06:29] LABS: BUN Creatinine Ratio 11.9 (6-22); Blood Urea Nitrogen 7 mg/dL (7-17); Calcium 8.6 mg/dL (8.4-10.2); Carbon Dioxide 30 mmol/L (22-32); Chloride 107 mmol/L (98-107); Estimated Glomerular Filt Rate > 60.0 mL/min (>60); Glucose 92 mg/dL (70-100); HEMOLYSIS < 15 (0-50); Potassium 3.4 mmol/L (3.4-5.1); Sodium 137 mmol/L (137-145)
[2021-01-31 06:34] LABS: Add Manual Diff / Slide Review SLIDE REVIEW; Basophils Absolute Auto 0 /uL (0-100); Basophils Percent Auto 0.5 % (0-2); Eosinophils Absolute Auto 100 /uL (0-450); Eosinophils Percent Auto 1.7 % (2-4); Hematocrit 27.3 % (36-46); Hemoglobin 8.7 g/dL (12.0-16.0); Lymphocytes Absolute Auto 1700 /uL (1100-4500); Lymphocytes Percent Auto 22.4 % (25-40); Mean Corpuscular Volume 71.8 fL (80-100); Monocytes Absolute Auto 800 /uL (0-900); Monocytes Percent Auto 10.7 % (3-14); Neutrophils Absolute Auto 4900 /uL (1500-7000); Neutrophils Percent Auto 64.7 % (50-75); Platelet Count 300 X10^3/uL (150-400); Red Cell Distribution Width 20.7 % (11.6-14.8); White Blood Cell Count 7.5 X10^3/uL (4.5-11.0)
[2021-01-31] MEDS: LACTATED RINGERS 1,000 ML 125 ML IV (06:45)
--- NOTE | 2021-01-31 07:53 | DI.CT.S_ITS ---
PROCEDURE: CT CHEST WO CON INDICATIONS: sepsis TECHNIQUE: Noncontrast 5 mm thick sections acquired from the pulmonary apices to the posterior costophrenic angles. 1 mm lung window, 5 mm thick coronal and sagittal and 7 mm axial MIP reformats were then acquired. For radiation dose reduction, the following was used: automated exposure control, adjustment of mA and/or kV according to patient size. COMPARISON: None. FINDINGS: Image quality: Excellent. Lungs and pleura: Multiple bilateral bullae extreme apices. No acute air space opacities. No pleural effusions or pneumothorax. Central and peripheral airways are patent and normal in caliber. Mediastinum: Heart size is normal. No pericardial effusion. No mediastinal adenopathy by size criteria. Thoracic aorta and central pulmonary arteries are normal in size. Esophagus is normal in caliber. No hiatal hernia. Bones and chest wall: No suspicious bony lesions. No vertebral body compression fractures. No axillary or supraclavicular adenopathy by size criteria. Thyroid gland is unremarkable as visualized. NG tube coils in the stomach. It points towards the GE junction. Abdomen: Visualized upper abdominal solid organs and bowel loops appear normal in the absence of contrast. IMPRESSION: 1. NG tube coils in the stomach, pointing back towards the GE junction. 2. Biapical bullous emphysema. 3. No evidence acute pulmonary process. Dictated by: Aly Wynne M.D. on 01/31/2021 at 8:04 Approved by: Aly Wynne M.D. on 01/31/2021 at 8:07
[2021-01-31] MEDS: MORPHINE 4 MG/ML INJ IV (08:44)
[2021-01-31] MEDS: PANTOPRAZOLE 40 MG VIAL IV (08:44)
--- NOTE | 2021-01-31 08:55 | PM.PREOP ---
Pre-operative Note COVID-19 COVID-19 status: Negative Result date/Date tested (Pos, Neg/Pending): 01/30/21 Interval Note History & Physical reviewed/Exam performed by Physician: Yes Changes to H&P: No
[2021-01-31] MEDS: LACTATED RINGERS 1,000 ML 42 ML IV (09:10)
--- NOTE | 2021-01-31 09:50 | P.OP.ENDO_ITS ---
Operative Date/Time/Diagnoses Date of procedure: 01/31/21 Time of procedure: 09:54 Pre-op diagnosis: Gastric outlet obstruction Post-op diagnosis: other (Severe erosive gastritis) Procedure & Clinicians Study performed: Esophagogastroduodenoscopy Biopsies of duodenum and stomach with standard forceps Same procedure as scheduled: Yes Indications: Abdominal pain, thickening of stomach on CT scan, anemia Surgeon: Angela Dc Procedure Notes SCOAP/Timeout: Performed Procedure in detail: The patient was brought to the room. Time-out was conducted. The patient was placed under anesthesia by Dr. Gonzalez and an ET tube was placed. She was then placed in left lateral decubitus position with all bony prominences padded. A bite block was positioned in the patient's mouth to protect the lips, teeth, and tongue for the procedure. The lubricated gastroscope was passed through the bite block and across the tongue and into the esophagus without incident. A tubular view of the esophagus was maintained as the scope was advanced through the esophagus and into the stomach. The scope was advanced through the stomach and to the pylorus. The scope was gently popped through the pylorus and into the duodenal bulb. There were some shallow ulcers and erosions in the 1st and 2nd parts of the duodenum. No exposed vessels, or active bleeding was seen. Biopsies were taken. The scope was flexed and advanced into the second and third portions of the duodenum. The 2nd 3rd parts of the duodenum appeared normal. The scope was withdrawn into the stomach. Evidence of severe erosive gastritis was seen in the stomach. B iopsies were taken to rule out H pylori. No visible vessels or active bleeding was seen. The scope was retroflexed and the gastric cardia was examined. The hiatus [appeared normal]. There was no significant hiatal hernia, or any erosions or Walt ulcers at the hiatus. The scope was then straightened, and withdrawn into the esophagus. The Z-line [appeared normal]. The distal esophagus [appeared normal]. The scope was then withdrawn through the esophagus with a tubular view. The scope was then withdrawn from the patient the procedure was concluded. The patient tolerated the procedure well. She was awakened from anesthesia, extubated, and was transferred to the PACU in stable condition. Findings: gastritis (Severe erosive gastritis) Specimen(s): other (Biopsies of duodenum and stomach) Complications: none Impression: Severe risk gastritis likely due to NSAIDs and/or H pylori Post-procedure Recommendations: No ASA/NSAIDS, EGD in 6-8 weeks and Start medication(s) (Double dose PPI, empiric treatment for H pylori) Follow up: as needed Disposition: PACU
--- NOTE | 2021-01-31 10:01 | SUR.PHASEI ---
beginning to arouse spontaneously, mostly sleeping. Stable
--- NOTE | 2021-01-31 10:32 | SUR.PHASEI ---
1023 To room 213, bed down and locked, patient up to bathroom with RN as soon as VS were taken. Pt pillow and blanket returned to the room with her. Babak present in the room. Pt oriented, happy that tube is out. No questions from patient or staff.
[2021-01-31] MEDS: LACTATED RINGERS 1,000 ML 120 ML IV (10:49)
[2021-01-31 11:51] LABS: Anisocytosis 1+; Microcytosis 1+; Ovalocytes 1+; Poikilocytosis 1+
--- NOTE | 2021-01-31 12:16 | PM.DS.1 ---
History of Present Illness History of Present Illness Chief complaint: ABDOMINAL PAIN, STARTED ABOUT 2 DAYS AGO Narrative: Ms. Jordy Alex is a 35-year-old female with past medical history migraines and psoriatic arthritis and polysubstance abuse presents to the ER with mid abdominal. The patient describes developing kena umbilical abdominal pain 2 days ago with intermittent radiation up into the chest. The pain has been somewhat colicky character waxing and waning with associated nausea with no vomiting until today. She reports reflux symptoms with acid taste in her mouth and episodic chest discomfort The patient describes her emesis as bile. Patient additionally reports that she has not a bowel movement in 2 days and is typically very regular and has had no abnormal stool, hematochezia melena. Patient additionally reports that she took several tablets of ibuprofen for tooth pain 4 days ago. The patient did take Pepto-Bismol with transient improvement in symptoms. The patient denies systemic symptoms of headache or dizziness, fevers or chills. She had no nasal congestion or sore throat. She denies complaints chest pain but does endorse radiating pain her stomach into her chest. She has had no palpitations and denies shortness of breath cough or wheezing. Abdominal pain as above. The patient denies urinary symptoms no complaints hematuria, urgency, frequency or burning. She is currently on her menstrual period beginning 5 days ago and typically lasting 7 days. Patient endorses a history marijuana use for 21 years and states her last methenamine exposure was 4 days ago walking into a room of meth smokers. The patient His multiple well-healed scars with a past history of cutting. Upon admission to the ED initial vital signs are temperature of 97.6?, heart rate of 74, blood pressure 171/111, respirations 16 saturating 100% on room air. Her blood pressure subsequently has diminished down to 163/98 while in the ER and 132/92 upon admission to acute care floor. Imaging is obtained which is remarkable for marked diffuse edema the gastric antrum and pylorus with a question of gastric antral ulcer. There was incidental finding and L5 pars defect with mild anterolisthesis of L5 on S1. Initial lab results find white count of 10.4 with mild elevation neutrophils at 7800, and H&H of 10.8 and 34.3 and platelets of 405. Her coagulation studies are all within normal limits as are her chemistries with a BUN of 15 and creatinine 0.47. Her nonfasting glucose is 122. Her liver functions are all within normal limits and lipase is 72 and albumin is 4.4. Her lactic acid is 1.7. Serum test is negative. COVID screening is also negative. Urinalysis reveals a specific gravity of 1.010, is positive for blood and protein WBCs and moderate bacteria, UA negative for nitrites and leukocyte esterase. Urine tox screen is positive for opiates (the patient has received morphine in the ER), amphetamine/methamphetamine, marijuana. In the ER the patient received initial dose of Protonix 40 mg IV Zofran 4 mg x 2 as well as morphine sulfate 2 mg x 2 with significant improvement in pain and nausea. Patient received 2 L normal saline. In the ER the patient refused NG tube to both nursing and ER provider. Dr. Dc was asked to consult, she review the imaging and evaluated the patient in the emergency department. In conversation with Dr. Dc she notes the patient has distended stomach on CT exam and would significantly benefit placement NG tube to which the patient tentatively agreed. The patient is admitted to the medicine service for marked gastritis of unclear etiology. Discharge Providers Provider Date of admission: 01/31/21 09:30 Discharge Date: 01/31/21 Consults: 01/30/21 20:18 Consult to Discharge Planning Routine Comment: Discharge provider: Dale Patrick MD Summary Hospital Course Discharge Diagnosis: 1. Severe erosive gastritis 2. Cigarette dependency 3. Methamphetamine dependency 4. Migraine headaches 5. Acute blood loss anemia Patient was admitted and started on IV Protonix. Dr. Easley consulted and performed EGD which showed severe diffuse erosive gastritis likely related to chronic NSAID use. Patient is being discharged on b.i.d. Protonix as well as triple antibiotic therapy with amoxicillin, metronidazole and clarithromycin for 2 weeks to treat empirically for H pylori. 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 She will follow up with Dr. Easley in office in 2-3 weeks and needs repeat EGD in 6-8 weeks. She was advise as to avoiding aspirin and NSAID products, quitting smoking and methamphetamine. She was doing better after endoscopy with no abdominal pain or vomiting and tolerating a soft diet. Status at Discharge Cognitive/behavioral status at discharge: oriented Functional status at discharge: independent ambulation Overall status at discharge: patient is progressing back to baseline Time Spent with Patient Time spent: Greater than 30 minutes Exam Vital Signs (past 8 hours): - 01/31/21 07:00 01/31/21 08:00 01/31/21 09:50 Temperature 97.8 F 98.4 F Pulse Rate 101 H 73 Respiratory Rate 16 15 Blood Pressure 128/75 124/83 Pulse Oximetry 98 99 99 01/31/21 09:55 01/31/21 10:00 01/31/21 10:05 Temperature Pulse Rate 71 78 68 Respiratory Rate 16 16 18 Blood Pressure 125/88 135/91 H 145/94 H Pulse Oximetry 99 99 99 01/31/21 10:15 01/31/21 11:00 Temperature 99.0 F Pulse Rate 74 Respiratory Rate 19 Blood Pressure 140/83 Pulse Oximetry 100 100 Oxygen Delivery Method Room Air Oxygen Flow Rate 0 Objective Labs Result Diagrams: 01/31/21 06:05 01/31/21 06:05 Labs: Laboratory Results - last 24 hr 01/30/21 01/30/21 01/30/21 13:43 13:43 13:56 WBC 10.4 RBC 4.77 Hgb 10.8 L Hct 34.3 L MCV 72.0 L MCH 22.6 L MCHC 31.4 RDW 20.9 H Plt Count 405 H Neut % (Auto) 75.2 H Lymph % (Auto) 16.9 L [place] % (Auto) 5.4 Eos % (Auto) 0.9 L Baso % (Auto) 1.6 Neut # (Auto) 7800 H Lymph # (Auto) 1800 [place] # (Auto) 600 Eos # (Auto) 100 Baso # (Auto) 200 H RBC Morphology Not Reportable Poikilocytosis 1+ H Anisocytosis 3+ H Microcytosis Ovalocytes PT INR APTT Sodium Potassium Chloride Carbon Dioxide BUN Creatinine Estimated GFR BUN/Creatinine Ratio Glucose Lactate 1.7 Calcium Magnesium Total Bilirubin AST ALT Alkaline Phosphatase Total Protein Albumin Globulin Albumin/Globulin Ratio Lipase Serum , Qual Negative Urine RBC Urine WBC Ur Squamous Epith Cells Amorphous Sediment Urine Bacteria Ur Culture Indicated? U Opiates 300ng/mL cut Ur Oxycodone Screen Urine Methadone Screen Ur Barbiturates Screen U Tricyclic Antidepress Ur Phencyclidine Scrn Ur Amphetamines Screen U Methamphetamines Scrn Ur MDMA Scrn (Ecstasy) U Benzodiazepines Scrn Urine Cocaine Screen U Marijuana (THC) Screen SARS-CoV-2 (PCR) 01/30/21 01/30/21 01/30/21 13:56 13:56 13:56 WBC RBC Hgb Hct MCV MCH MCHC RDW Plt Count Neut % (Auto) Lymph % (Auto) [place] % (Auto) Eos % (Auto) Baso % (Auto) Neut # (Auto) Lymph # (Auto) [place] # (Auto) Eos # (Auto) Baso # (Auto) RBC Morphology Poikilocytosis Anisocytosis Microcytosis Ovalocytes PT 11.2 INR 1.0 APTT 28 Sodium 136 L Potassium 3.6 Chloride 103 Carbon Dioxide 28 BUN 15 Creatinine 0.47 L Estimated GFR > 60.0 BUN/Creatinine Ratio 31.9 H Glucose 122 H Lactate Calcium 9.5 Magnesium 2.0 Total Bilirubin 0.2 AST 24 ALT 12 Alkaline Phosphatase 73 Total Protein 7.7 Albumin 4.4 Globulin 3.3 Albumin/Globulin Ratio 1.3 Lipase 72 Serum , Qual Urine RBC Urine WBC Ur Squamous Epith Cells Amorphous Sediment Urine Bacteria Ur Culture Indicated? U Opiates 300ng/mL cut Ur Oxycodone Screen Urine Methadone Screen Ur Barbiturates Screen U Tricyclic Antidepress Ur Phencyclidine Scrn Ur Amphetamines Screen U Methamphetamines Scrn Ur MDMA Scrn (Ecstasy) U Benzodiazepines Scrn Urine Cocaine Screen U Marijuana (THC) Screen SARS-CoV-2 (PCR) 01/30/21 01/30/21 01/30/21 16:00 16:00 18:00 WBC RBC Hgb Hct MCV MCH MCHC RDW Plt Count Neut % (Auto) Lymph % (Auto) [place] % (Auto) Eos % (Auto) Baso % (Auto) Neut # (Auto) Lymph # (Auto) [place] # (Auto) Eos # (Auto) Baso # (Auto) RBC Morphology Poikilocytosis Anisocytosis Microcytosis Ovalocytes PT INR APTT Sodium Potassium Chloride Carbon Dioxide BUN Creatinine Estimated GFR BUN/Creatinine Ratio Glucose Lactate Calcium Magnesium Total Bilirubin AST ALT Alkaline Phosphatase Total Protein Albumin Globulin Albumin/Globulin Ratio Lipase Serum , Qual Urine RBC 1-5/hpf Urine WBC 10-30/hpf H Ur Squamous Epith Cells 1-5 /hpf Amorphous Sediment 3+ Urine Bacteria Moderate (10-30) H Ur Culture Indicated? Specimen cultured U Opiates 300ng/mL cut Positive H Ur Oxycodone Screen Negative Urine Methadone Screen Negative Ur Barbiturates Screen Negative U Tricyclic Antidepress Negative Ur Phencyclidine Scrn Negative Ur Amphetamines Screen Positive H U Methamphetamines Scrn Positive H Ur MDMA Scrn (Ecstasy) Negative U Benzodiazepines Scrn Negative Urine Cocaine Screen Negative U Marijuana (THC) Screen Positive H SARS-CoV-2 (PCR) Negative 01/31/21 01/31/21 06:05 06:05 WBC 7.5 RBC 3.80 L Hgb 8.7 L Hct 27.3 L MCV 71.8 L MCH 23.0 L MCHC 32.0 RDW 20.7 H Plt Count 300 Neut % (Auto) 64.7 Lymph % (Auto) 22.4 L [place] % (Auto) 10.7 Eos % (Auto) 1.7 L Baso % (Auto) 0.5 Neut # (Auto) 4900 Lymph # (Auto) 1700 [place] # (Auto) 800 Eos # (Auto) 100 Baso # (Auto) 0 RBC Morphology See below Poikilocytosis 1+ H Anisocytosis 1+ H D Microcytosis 1+ H Ovalocytes 1+ H PT INR APTT Sodium 137 Potassium 3.4 Chloride 107 Carbon Dioxide 30 BUN 7 Creatinine 0.59 Estimated GFR > 60.0 BUN/Creatinine Ratio 11.9 Glucose 92 Lactate Calcium 8.6 Magnesium Total Bilirubin AST ALT Alkaline Phosphatase Total Protein Albumin Globulin Albumin/Globulin Ratio Lipase Serum , Qual Urine RBC Urine WBC Ur Squamous Epith Cells Amorphous Sediment Urine Bacteria Ur Culture Indicated? U Opiates 300ng/mL cut Ur Oxycodone Screen Urine Methadone Screen Ur Barbiturates Screen U Tricyclic Antidepress Ur Phencyclidine Scrn Ur Amphetamines Screen U Methamphetamines Scrn Ur MDMA Scrn (Ecstasy) U Benzodiazepines Scrn Urine Cocaine Screen U Marijuana (THC) Screen SARS-CoV-2 (PCR) [facility] Medical History (Updated 01/30/21 @ 21:19 by SHADY Vizcaino) Migraine headache Polysubstance abuse Psoriatic arthritis Surgical History (Updated 01/30/21 @ 21:19 by SHADY Vizcaino) History of tubal ligation Family History (Updated 01/30/21 @ 21:21 by SHADY Vizcaino) Father Hypertension Mother Alcoholism Grandmother Diabetes mellitus Sister Lupus Family/Other Multiple sclerosis Social History household members: significant other Smoking Status: Current every day smoker alcohol intake: former Discharge Plan Discharge Plan Provider Discharge Comment: 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 Take 2 week course of the three antibiotics all at the same time to treat for H.pylori and continue on twice daily pantoprazole as acid amanda to help stomach lining heal. Follow up with Dr Dc in 2 to 3 weeks. You will need repeat endoscopy in 6 to 8 weeks. EGD showed severe erosive gastritis. Do not take any NSAIDs (ibuprofen, naproxen) or aspirin containing products. Tylenol is okay to take in recommended doses. Avoid alcohol and cigarettes. Discharge orders & Medications Discharge Orders: Discharge (Order); Ordered 01/31/21 Ordered By: Dale Patrick Prescriptions: New amoxicillin 500 mg tablet 1,000 mg PO BID Qty: 56 RF: 0 clarithromycin 500 mg tablet 500 mg PO BID Qty: 28 RF: 0 pantoprazole 40 mg tablet,delayed release (DR/EC) 40 mg PO BID Qty: 60 RF: 1 metronidazole 500 mg tablet 500 mg PO BID Qty: 28 RF: 0 Follow up/Referrals: Angela Dc MD [Physician] - 2 Weeks Diet/Activity/Treatments Diet: Regular Visit Report/Discharge Packet Instructions: DI for Gastritis Quality VTE Deep Vein Thrombosis/Pulmonary Embolism Present on Admission: No
--- NOTE | 2021-01-31 13:15 | PC.NURSE ---
Patient educated about new medications, diagnosis, activity, diet, falls, ss of stroke. Patient verbalized understanding of all discharge instructions. Patient told about her medications being e-sent to [facility] in [place] and to picker tomorrow when they are open. Patient educated about discontinuation of alcohol and cigarette use. Patient left facility with all belongings w/ significant other.
--- NOTE | 2021-01-31 13:22 | CM.DANOTE ---
Patient is a 35 year old female who was admitted on 01/30/21 for Abd Pain. Pt has SELF PAY for insurance and no PCP. EMR was reviewed. Per MD, pt wth hx of psoriatic arthritis and polysubstance abuse. Pt with N/V and Surgeon Consulted. Per Surgeon, pt with NG tube, NPO and likely gastritis and EGD vs GI swallow due to her current UDS positive for amphetamines/methamphetamines/THC/opiates. Pt taken to OR this morning at 0900 for EGD and no NG tube output and pt now medically stable to d/c home with 4 new medications (mostly oral abx). SW met bedside with pt and sig other and they confirm that they live behind the [employer] outside of [place] in an RV/cabin type situation and pt currently not working and confirms that she let her Medicaid insurance lapse but received the re-enrollment forms from [employer]missions [employer] yesterday. Pt acknowledges long hx (21 yrs+) of marijuana use but denies current meth use but states she inhaled air from a room where others were smoking meth. Pt declines any need for housing or CD resources. Pt states she does not have a vehicle and typically walks most places but that today they have a friend who can give them a ride home. Pt appears somewhat disheveled with missing teeth and more constant body movements but able to participate in discussion and pleasant. SW inquired about funds to pay for 4 new medications and pt requests support with SW looking up medications on GoodRx to see if they can afford the meds with coupons. SW provided the coupons with cost to pt and sig other and they confirm they can figure out a way to pay for them and plan is to d/c with meds e-sent downstairs to [facility] to be filled and picked up tomorrow with GoodRx coupons and if any issues then CM Medical Accounts Receivable Specialist Lexii confirms Medical Relief patsy could be used to pay for the meds at [facility] if needed. CORBY realized after pt discharged that [facility] cannot accept GoodRx coupons and unable to currently cancel the e-fax of scripts to [facility]. Plan: Patient discharged home with sig other via friend POV and aware that meds sent to [facility] to apple picking supervisor tomorrow and SW will follow up in the morning with [facility] to determine if scripts could be sent to [facility] vs Medical Relief to cover cost of new meds. SKYLER Arzate Discharge Planning/Care Management CM Discharge Assessment Start: 01/31/21 13:21 Freq: Status: Active Protocol: Document 01/31/21 13:21 BF (Rec: 01/31/21 13:22 BF [id number]) Discharge Planning Assessment Assigned [employer] Machine Operator SKYLER King DPOA/Assigned Designee Name none Advance Directives? No Advance Directives on File No History Provided By Patient,Significant Other, Medical Record Has Patient been admitted in last 30 No days? Prior Living Arrangements RV Household Members significant other Type of transporation used prior to Relies on Others admit Independent with ADL's Yes Is patient alert and oriented? Yes Caregiver for Another No Barriers to Discharge No Discharge Plan Home Transportation Arrangement Friend to provide transport home Referrals Initiated None needed Additional Comment Pt declines CD resources Whiteboard Updated in Patient Room with Yes name and ext. # of [employer] Machine Operator Review Status In Process Please Provide Date Initial DC 01/31/21 Assessment Was Performed Next Review Type Continued Stay Review
== END 2021-01-31 13:05 | disposition home or self-care (01) | DRG 392 ==
LOC: ED 14:31 → AC 19:21
PROVIDERS: Emergency Medicine; Surgery; Admitting Provider Nurse Practitioner Adult Health; Emergency Provider Nurse Practitioner Family; Referring Provider Nurse Practitioner Family; Visit Provider Nurse Practitioner Adult Health
PROC: 0DJ08ZZ Inspection of Upper Intestinal Tract, Via Natural or Artificial Opening Endoscopic (ICD-10-PCS; CPT 43235; principal; 2021-01-31 10:15)
DX: K29.60 Other gastritis without bleeding (principal); F15.20 Other stimulant dependence, uncomplicated; D62 Acute posthemorrhagic anemia; T39.395A Adverse effect of other nonsteroidal anti-inflammatory drugs [NSAID], initial encounter; K26.9 Duodenal ulcer, unspecified as acute or chronic, without hemorrhage or perforation; F17.210 Nicotine dependence, cigarettes, uncomplicated; Z20.822 Contact with and (suspected) exposure to COVID-19
CPT/HCPCS: 36415; 71045; 71250; 74177; 80048; 80053; 80305; 81003; 81015; 81025; 83605; 83690; 83735; 84703; 85025; 85610; 85730; 87077; 87086; 87186; 87635; 93005; 96361; 96374; 96375; 96376; 99284; G0378; C9113; J0330; J1100; J1956; J2270; J2405; J2704; Q9967